=== PATIENT | female | born 1960 | race Caucasian/White ===

== ENCOUNTER 2016-06-17 09:11 | Emergency (ER) | payer MEDICARE, MEDICAID ==
[~2016-06-17] VITALS: Ht 157.5 cm; Wt 120.0 kg
[~2016-06-17 09:11] MED LIST: ALBU0.086 NEB; ALBU1AER INH; LEVO150T7 PO; LISI-363 PO; PRED50TA PO; RANI1TAB5 PO
[2016-06-17 09:15] VITALS: BP 139/93; PULSE 92; RESP 16; TEMP 98.1; O2SAT 96
[2016-06-17] MEDS ORDERED: ALBUAER3 INH (09:33)
[2016-06-17] MEDS ORDERED: LEVO175T2 PO (09:34)
[2016-06-17] MEDS ORDERED: ALBU0.08 NEB (09:34)
[2016-06-17] MEDS ORDERED: LISI30TA4 PO (09:34)
[2016-06-17] MEDS ORDERED: methylPREDNISolone SOD SUCC 125 MG/2 ML VIAL IVP ONE (09:45)
[2016-06-17] MEDS ORDERED: SODIUM CHLORIDE 0.9% FLUSH 5 ML FLUSH IVF PRN (09:45)
--- NOTE | 2016-06-17 09:46 | PD ---
HPI Chief Complaint: Respiratory Symptoms Time Seen by Provider: 09:36 Travel History International Travel<30 days: No Contact w/Intl Traveler<30days: No Traveled to known affect area: No History of Present Illness HPI This 56-year-old female is complaining of shortness of breath and sharp right- sided chest pain. He's had similar pain in the past associated with pneumonia and COPD. She stopped smoking 9 years ago but has significant COPD. She has been checked for alpha 1 antitrypsin was apparently negative. She has had a persistent cough. The pain she is having as a sharp right-sided chest pain that is only present when she takes a deep breath. She has a history of thyroidectomy for cancer of the thyroid [facility] Past Medical History Arthritis: Yes (SPINE AND KNEES) Asthma: Yes Blood Disorders: No Anxiety: Yes Depression: Yes Cancer: Yes (THYROID) Cardiovascular Problems: Yes High Cholesterol: Yes COPD: Yes Diabetes: No Diminished Hearing: No Endocrine: Yes Gastrointestinal Disorders: Yes GERD: Yes Glaucoma: No Genitourinary: No Headaches: Yes (HEADACHES IN THE AM) Hepatitis: No Hiatal Hernia: No Hypertension: Yes Immune Disorder: No Implanted Vascular Access Dvce: No Musculoskeletal: Yes Neurologic: Yes Psychiatric: Yes Reproductive: No Respiratory: Yes (COPD) Immunizations Current: Yes Radiation Therapy: Yes Sleep Apnea: Yes (DOES NOT WEAR CPAP) Thyroid Disease: Yes (THYROID CANCER) ?: Not Menopausal: Yes : 8 Para: 5 Miscarriage: 3 : 0 Ectopic : Yes Tubal Ligation: Yes (REVERSED) Past Surgical History Abdominal Surgery: Yes (CHOLECYSTECTOMY) Cardiac Surgery: No Cholecystectomy: Yes (1993) Ear Surgery: No Endocrine Surgery: Yes (THYROIDECTOMY WITH RADIATION) Eye Surgery: No Genitourinary Surgery: No Gynecologic Surgery: No Neurologic Surgery: No Oral Surgery: Yes Pacemaker: No Thoracic Surgery: No Tonsillectomy: Yes (1970--T&A) Other Surgery: Yes (THYROIDECTOMY) Social History Alcohol Use: Yes (OCCASIONAL) Tobacco Use: No (4 yrs. ago) Substance Use: No Allergies-Medications (Allergen,Severity, Reaction): Coded Allergies: Sulfa (Verified Allergy, Severe, "HIVES", 06/17/16) Reported Meds & Prescriptions Reported Meds & Active Scripts Active Reported Lisinopril 30 Mg Tab 30 Mg PO DAILY Levothyroxine (Levothyroxine Sodium) 175 Mcg Tab 175 Mcg PO DAILY Albuterol Neb (Albuterol Sulfate) 2.5 Mg/3 Ml Neb 2.5 Mg NEB Q4HR NEB PRN Proair Hfa 8.5 GM Inh (Albuterol Sulfate) 90 Mcg/Act Aer 2 Puff INH Q6H PRN 108 mcg/actuation Review of Systems General / Constitutional: Positive: Fever, No: Chills Eyes: No: Diploplia, Blurred Vision HENT: No: Headaches, Vertigo Cardiovascular: Positive: Chest Pain or Discomfort, Dyspnea on exertion, No: Palpitations, Irregular Rhythm Respiratory: Positive: Cough, Shortness of Breath Gastrointestinal: No: Diarrhea Genitourinary: No: Urgency, Frequency Musculoskeletal: No: Myalgias, Arthralgias Endocrine: No: Heat Intolerance, Cold Intolerance Hematologic/Lymphatic: No: Easy Bruising Physical Exam Narrative GENERAL: Well-developed female SKIN: Warm and dry. HEAD: Atraumatic. Normocephalic. EYES: Pupils equal and round. No scleral icterus. No injection or drainage. ENT: No nasal bleeding or discharge. Mucous membranes pink and moist. NECK: Trachea midline. No JVD. CARDIOVASCULAR: Regular rate and rhythm. No murmur appreciated. RESPIRATORY: No accessory muscle use. Diminished breath sounds bilaterally. Breath sounds equal bilaterally. GASTROINTESTINAL: Abdomen soft, non-tender, nondistended. Hepatic and splenic margins not palpable. MUSCULOSKELETAL: No obvious deformities. No clubbing. No cyanosis. No edema. NEUROLOGICAL: Awake and alert. No obvious cranial nerve deficits. Motor grossly within normal limits. Normal speech. PSYCHIATRIC: Appropriate mood and affect; insight and judgment normal. Data Data Last Documented VS Vital Signs Date Time Temp Pulse Resp B/P Pulse Ox O2 Delivery O2 Flow Rate FiO2 06/17/16 10:15 96 06/17/16 10:15 Room Air 06/17/16 09:34 18 06/17/16 09:15 98.1 92 139/93 Orders Complete Blood Count With Diff (06/17/16 09:42) Basic Metabolic Panel (Bmp) (06/17/16 09:42) Troponin I (06/17/16 09:42) Iv Access Insert/Monitor (06/17/16 09:42) Electrocardiogram (06/17/16 09:42) Ecg Monitoring (06/17/16 09:42) Oximetry (06/17/16 09:42) Oxygen Administration (06/17/16 09:42) Chest, Pa & Lat (06/17/16 09:42) Sodium Chloride 0.9% Flush (Ns Flush) (06/17/16 09:45) Methylprednisolone So Succ Inj (Solumedr (06/17/16 09:45) Albuterol-Ipratropium Neb (Duoneb Neb) (06/17/16 09:45) Labs Laboratory Tests Test 06/17/16 10:06 White Blood Count 8.4 TH/MM3 Red Blood Count 4.58 MIL/MM3 Hemoglobin 13.3 GM/DL Hematocrit 40.6 % Mean Corpuscular Volume 88.6 FL Mean Corpuscular Hemoglobin 29.1 PG Mean Corpuscular Hemoglobin 32.9 % Concent Red Cell Distribution Width 13.0 % Platelet Count 298 TH/MM3 Mean Platelet Volume 7.6 FL Neutrophils (%) (Auto) 62.7 % Lymphocytes (%) (Auto) 29.7 % Monocytes (%) (Auto) 5.1 % Eosinophils (%) (Auto) 1.7 % Basophils (%) (Auto) 0.8 % Neutrophils # (Auto) 5.3 TH/MM3 Lymphocytes # (Auto) 2.5 TH/MM3 Monocytes # (Auto) 0.4 TH/MM3 Eosinophils # (Auto) 0.1 TH/MM3 Basophils # (Auto) 0.1 TH/MM3 CBC Comment DIFF FINAL Differential Comment Sodium Level 141 MEQ/L Potassium Level 3.9 MEQ/L Chloride Level 101 MEQ/L Carbon Dioxide Level 34.9 MEQ/L Anion Gap 5 MEQ/L Blood Urea Nitrogen 10 MG/DL Creatinine 0.67 MG/DL Estimat Glomerular Filtration 91 ML/MIN Rate Random Glucose 89 MG/DL Calcium Level 8.0 MG/DL Troponin I LESS THAN 0.02 NG/ML MDM Medical Decision Making Medical Screen Exam Complete: Yes Emergency Medical Condition: Yes Medical Record Reviewed: Yes Differential Diagnosis Differential includes pneumonia, COPD exacerbation, pleurisy Narrative Course Chest x-ray shows enlarged cardiac silhouette which has been noted on previous x -rays. There is no infiltrate noted. White count is normal. Patient has been given an initial dose of Solu-Medrol and significant treatments with some improvement. Impression is COPD exacerbation Diagnosis Primary Impression: COPD exacerbation Scripts Amoxicillin 500 Mg Kre545 Mg PO TID 7 Days Ref 0 Prov:Dominic Flores MD 06/17/16 Methylprednisolone Dosepak (Medrol Dosepak)4 Mg Dspk4 Mg PO DIRECTED #1 DSPK Ref 0 Per Pharmacist direction Prov:Dominic Flores MD 06/17/16 Disposition: 01 DISCHARGE HOME Condition: Stable Dominic Flores MD Jun 17, 2016 09:46
[2016-06-17] MEDS: RESP: ALBUTEROL 2.5 MG/IPRATROPIUM 0.5 MG NEB (SCH) INH (09:49)
[2016-06-17 10:15] VITALS: O2SAT 96
[2016-06-17 10:20] LABS: AUTOMATED NEUTROPHIL # 5.3 TH/MM3 (1.8-7.7); BASOPHIL # 0.1 TH/MM3 (0-0.2); BASOPHIL % 0.8 % (0.0-2.0); EOSINOPHIL # 0.1 TH/MM3 (0-0.4); EOSINOPHIL % 1.7 % (0.0-4.0); HEMATOCRIT 40.6 % (35.0-46.0); HEMO FLAGS DIFF FINAL; LYMPH % 29.7 % (9.0-44.0); LYMPHOCYTE # 2.5 TH/MM3 (1.0-4.8); MEAN CELL VOLUME 88.6 FL (80.0-100.0); MEAN CORPUSCULAR HEMOGLOBIN 29.1 PG (27.0-34.0); MEAN CORPUSCULAR HGB CONC 32.9 % (32.0-36.0); MONO % 5.1 % (0.0-8.0); NEUT % 62.7 % (16.0-70.0); PLATELET COUNT 298 TH/MM3 (150-450); RED BLOOD COUNT 4.58 MIL/MM3 (4.00-5.30); WHITE BLOOD COUNT 8.4 TH/MM3 (4.0-11.0)
[2016-06-17 10:28] LABS: CHLORIDE 101 MEQ/L (98-107); POTASSIUM 3.9 MEQ/L (3.5-5.1); SODIUM (NA) 141 MEQ/L (136-145)
[2016-06-17 10:31] LABS: BLOOD UREA NITROGEN 10 MG/DL (7-18)
[2016-06-17 10:32] LABS: ANION GAP 5 MEQ/L (5-15); BICARBONATE 34.9 MEQ/L (21.0-32.0)
[2016-06-17 10:34] LABS: GLOMERULAR FILTRATION RATE 91 ML/MIN (>89)
--- NOTE | 2016-06-17 10:41 | RADHPO ---
EXAM DATE/TIME: 06/17/2016 10:22 [facility] COMPARISON: CHEST PA & LAT, April 07, 2014, 13:47. INDICATIONS : Short of breath, right side chest pain. MEDICAL HISTORY : Chronic obstructive pulmonary disease. SURGICAL HISTORY : None. ENCOUNTER: Initial ACUITY: 1 week PAIN SCORE: 7/10 LOCATION: Right chest FINDINGS: PA and lateral views of the chest demonstrate the lungs to be symmetrically aerated without evidence of mass, infiltrate or effusion. The cardiomediastinal contours again reveal mild left ventricular c ardiomegaly compensated.. Osseous structures are intact. CONCLUSION: No acute disease. No significant change has occurred. Prasanth Jacob MD on June 17, 2016 at 10:36 Board Certified Radiologist. This report was verified electronically.
[2016-06-17] MEDS ORDERED: MEDR4PAK PO ×2 (11:13→11:15)
[2016-06-17] MEDS ORDERED: AMOX500T PO ×2 (11:13→11:15)
[2016-06-17 11:34] VITALS: BP 135/74
--- NOTE | 2016-06-18 16:43 | EKG ---
Date Performed: 06/17/2016 Time Performed: 09:55:34 PTAGE: 56 years EKG: Sinus rhythm Inferior and anterior T wave changes are nonspecific Low QRS voltages in precordial leads Since prev ious tracing, no significant change noted Borderline ECG PREVIOUS TRACING : 04/10/2015 05.56 DOCTOR: Kristopher Husain Interpretating Date/Time 06/18/2016 16:43:17
== END 2016-06-17 11:35 | disposition home or self-care (01) ==
LOC: PHED 09:11
DX: J44.1 Chronic obstructive pulmonary disease with (acute) exacerbation (principal); E78.00 Pure hypercholesterolemia, unspecified; K21.9 Gastro-esophageal reflux disease without esophagitis; I10 Essential (primary) hypertension
CPT/HCPCS: 71020; 80048; 84484; 85025; 93005; 94640; 94664; 96374; 99285; J2930

== ENCOUNTER 2016-07-29 11:11 | Emergency (ER) | payer MEDICARE, MEDICAID ==
[~2016-07-29] VITALS: Ht 154.9 cm; Wt 100.0 kg
[~2016-07-29 11:11] MED LIST changes: +ALBU0.08 NEB; -ALBU0.086 NEB; -ALBU1AER INH; +ALBUAER3 INH; +AMOX500T PO; -LEVO150T7 PO; +LEVO175T2 PO; -LISI-363 PO; +LISI30TA4 PO; +MEDR4PAK PO; -PRED50TA PO; -RANI1TAB5 PO
[2016-07-29 11:15] VITALS: BP 134/83; PULSE 175; RESP 20; TEMP 98.7; O2SAT 97
[2016-07-29] MEDS ORDERED: SODIUM CHLORIDE 0.9% FLUSH 10 ML FLUSH IVF PRN (11:30)
[2016-07-29] MEDS ORDERED: ASPIRIN 81 MG CHEW TAB PO ONE (11:30)
[2016-07-29] MEDS ORDERED: ADENOSINE IV SOLN 3 MG/ML 2 ML VIAL IV PUSH ONE (11:30)
[2016-07-29] MEDS ORDERED: SODIUM CHLORID 0.9% 500 ML INJ 500 ML IV ONE (11:30)
[2016-07-29 11:32] VITALS: BP 142/84; PULSE 97; RESP 18; O2SAT 95
[2016-07-29 11:37] VITALS: BP_SYST 135; BP_SYST 142; BP_DIAS 83; BP_DIAS 84; PULSE 95; RESP 18; O2SAT 94
[2016-07-29 11:39] LABS: AUTOMATED NEUTROPHIL # 7.1 TH/MM3 (1.8-7.7); BASOPHIL # 0.1 TH/MM3 (0-0.2); BASOPHIL % 0.6 % (0.0-2.0); EOSINOPHIL # 0.2 TH/MM3 (0-0.4); EOSINOPHIL % 1.6 % (0.0-4.0); HEMATOCRIT 44.5 % (35.0-46.0); HEMO FLAGS DIFF FINAL; LYMPH % 26.8 % (9.0-44.0); LYMPHOCYTE # 2.9 TH/MM3 (1.0-4.8); MEAN CELL VOLUME 89.5 FL (80.0-100.0); MEAN CORPUSCULAR HEMOGLOBIN 29.1 PG (27.0-34.0); MEAN CORPUSCULAR HGB CONC 32.6 % (32.0-36.0); MONO % 5.3 % (0.0-8.0); NEUT % 65.7 % (16.0-70.0); PLATELET COUNT 336 TH/MM3 (150-450); RED BLOOD COUNT 4.97 MIL/MM3 (4.00-5.30); RED CELL DISTRIBUTION WIDTH 12.9 % (11.6-17.2); WHITE BLOOD COUNT 10.9 TH/MM3 (4.0-11.0)
[2016-07-29 11:40] VITALS: RESP 16; O2SAT 92
[2016-07-29 11:46] VITALS: RESP 16; O2SAT 91
--- NOTE | 2016-07-29 11:52 | PD ---
HPI Chief Complaint: Chest Pain Time Seen by Provider: 11:14 Travel History International Travel<30 days: No Contact w/Intl Traveler<30days: No Traveled to known affect area: No History of Present Illness HPI The patient is a 56-year-old female who presents emergency department for chest pain. The patient states he developed chest pain, sudden onset, approximately 15 minutes prior to arrival while shopping. The chest pain was substernal, pressure, heaviness, and assisted with mild shortness of breath. The patient also complained of diaphoresis without any nausea or vomiting. The patient denies any known history of coronary artery disease, however, does have a history of hypertension. The patient has a remote history of tobacco use, quit greater than 5 years ago. The patient does have underlying history of COPD secondary to previous tobacco use. The patient denies any history of hyperlipidemia or diabetes. The patient denies any recent prolonged travel, hospitalizations, surgeries, or previous history of pulmonary embolism/DVT. Patient denies any history of arrhythmias including SVT or atrial fibrillation. PFSH Past Medical History Hx Anticoagulant Therapy: No Arthritis: Yes (SPINE AND KNEES) Asthma: Yes Blood Disorders: No Anxiety: Yes Depression: Yes Cancer: Yes (THYROID) Cardiovascular Problems: Yes High Cholesterol: Yes COPD: Yes Diabetes: No Diminished Hearing: No Endocrine: Yes Gastrointestinal Disorders: Yes GERD: Yes Glaucoma: No Genitourinary: No Headaches: Yes (HEADACHES IN THE AM) Hepatitis: No Hiatal Hernia: No Hypertension: Yes Immune Disorder: No Implanted Vascular Access Dvce: No Musculoskeletal: Yes Neurologic: Yes Psychiatric: Yes Reproductive: No Respiratory: Yes (COPD) Immunizations Current: Yes Radiation Therapy: Yes Sleep Apnea: Yes (DOES NOT WEAR CPAP) Thyroid Disease: Yes (THYROID CANCER) Tetanus Vaccination: < 5 Years ?: Not Menopausal: Yes : 8 Para: 5 Miscarriage: 3 : 0 Ectopic : Yes Tubal Ligation: Yes (REVERSED) Past Surgical History Abdominal Surgery: Yes (CHOLECYSTECTOMY) Cardiac Surgery: No Cholecystectomy: Yes (1993) Ear Surgery: No Endocrine Surgery: Yes (THYROIDECTOMY WITH RADIATION) Eye Surgery: No Genitourinary Surgery: No Gynecologic Surgery: No Neurologic Surgery: No Oral Surgery: Yes Pacemaker: No Thoracic Surgery: No Tonsillectomy: Yes (1970--T&A) Other Surgery: Yes (THYROIDECTOMY) Social History Alcohol Use: Yes (OCCASIONAL) Tobacco Use: No (QUIT 2007) Substance Use: No Allergies-Medications (Allergen,Severity, Reaction): Coded Allergies: Sulfa (Verified Allergy, Severe, "HIVES", 07/29/16) Reported Meds & Prescriptions Reported Meds & Active Scripts Active Reported Lisinopril 30 Mg Tab 30 Mg PO DAILY Levothyroxine (Levothyroxine Sodium) 175 Mcg Tab 175 Mcg PO DAILY Albuterol Neb (Albuterol Sulfate) 2.5 Mg/3 Ml Neb 2.5 Mg NEB Q4HR NEB PRN Proair Hfa 8.5 GM Inh (Albuterol Sulfate) 90 Mcg/Act Aer 2 Puff INH Q6H PRN 108 mcg/actuation Review of Systems Except as stated in HPI: all other systems reviewed are Neg General / Constitutional: No: Fever HENT: No: Lightheadedness Cardiovascular: Positive: Chest Pain or Discomfort, Diaphoresis Respiratory: Positive: Shortness of Breath Gastrointestinal: No: Nausea, Vomiting Neurologic: No: Dizziness Physical Exam Narrative GENERAL: Awake, alert, pleasant 56 year-old female who appears her stated age and is in no acute respiratory distress. SKIN: Focused skin assessment warm/dry. HEAD: Atraumatic. Normocephalic. EYES: Pupils equal and round. No scleral icterus. No injection or drainage. ENT: No nasal bleeding or discharge. Mucous membranes pink and moist. NECK: Trachea midline. No JVD. CARDIOVASCULAR: Regular, tachycardic with a heart rate of approximately 170. RESPIRATORY: No accessory muscle use. Clear to auscultation. Breath sounds equal bilaterally. GASTROINTESTINAL: Abdomen soft, non-tender, nondistended. MUSCULOSKELETAL: No obvious deformities. No clubbing. No cyanosis. No edema. NEUROLOGICAL: Awake and alert. No obvious cranial nerve deficits. Motor grossly within normal limits. Normal speech. PSYCHIATRIC: Appropriate mood and affect; insight and judgment normal. Data Data Last Documented VS Vital Signs Date Time Temp Pulse Resp B/P Pulse Ox O2 Delivery O2 Flow Rate FiO2 07/29/16 12:37 88 16 148/87 97 Nasal Cannula 1 07/29/16 11:15 98.7 Orders Electrocardiogram (07/29/16 11:18) Ckmb (Isoenzyme) Profile (07/29/16 11:18) Complete Blood Count With Diff (07/29/16 11:18) Comprehensive Metabolic Panel (07/29/16 11:18) D-Dimer (07/29/16 11:18) Magnesium (Mg) (07/29/16 11:18) Prothrombin Time / Inr (Pt) (07/29/16 11:18) Act Partial Throm Time (Ptt) (07/29/16 11:18) Troponin I (07/29/16 11:18) Chest, Single Ap (07/29/16 11:18) Ecg Monitoring (07/29/16 11:18) Bilateral Bp Monitoring (07/29/16 11:18) Iv Access Insert/Monitor (07/29/16 11:18) Oximetry (07/29/16 11:18) Oxygen Administration (07/29/16 11:18) Aspirin Chew (Aspirin Chew) (07/29/16 11:30) Sodium Chloride 0.9% Flush (Ns Flush) (07/29/16 11:30) Sodium Chlorid 0.9% 500 Ml Inj (Ns 500 M (07/29/16 11:30) Adenosine Inj (Adenocard Inj) (07/29/16 11:30) Free Thyroxine (T4) (07/29/16 11:28) Thyroid Stimulating Hormone (07/29/16 11:28) CKMB (07/29/16 11:25) CKMB% (07/29/16 11:25) Free Thyroxine (T4) (07/29/16 13:09) Thyroid Stimulating Hormone (07/29/16 13:09) Labs Laboratory Tests Test 07/29/16 11:25 White Blood Count 10.9 TH/MM3 Red Blood Count 4.97 MIL/MM3 Hemoglobin 14.5 GM/DL Hematocrit 44.5 % Mean Corpuscular Volume 89.5 FL Mean Corpuscular Hemoglobin 29.1 PG Mean Corpuscular Hemoglobin 32.6 % Concent Red Cell Distribution Width 12.9 % Platelet Count 336 TH/MM3 Mean Platelet Volume 8.0 FL Neutrophils (%) (Auto) 65.7 % Lymphocytes (%) (Auto) 26.8 % Monocytes (%) (Auto) 5.3 % Eosinophils (%) (Auto) 1.6 % Basophils (%) (Auto) 0.6 % Neutrophils # (Auto) 7.1 TH/MM3 Lymphocytes # (Auto) 2.9 TH/MM3 Monocytes # (Auto) 0.6 TH/MM3 Eosinophils # (Auto) 0.2 TH/MM3 Basophils # (Auto) 0.1 TH/MM3 CBC Comment DIFF FINAL Differential Comment Prothrombin Time 10.4 SEC Prothromb Time International 0.9 RATIO Ratio Activated Partial 27.0 SEC Thromboplast Time D-Dimer Quantitative (PE/DVT) 0.43 MG/L FEU Sodium Level 140 MEQ/L Potassium Level 3.9 MEQ/L Chloride Level 100 MEQ/L Carbon Dioxide Level 32.4 MEQ/L Anion Gap 8 MEQ/L Blood Urea Nitrogen 12 MG/DL Creatinine 0.76 MG/DL Estimat Glomerular Filtration 79 ML/MIN Rate Random Glucose 95 MG/DL Calcium Level 8.8 MG/DL Magnesium Level 2.2 MG/DL Total Bilirubin 0.4 MG/DL Aspartate Amino Transf 24 U/L (AST/SGOT) Alanine Aminotransferase 36 U/L (ALT/SGPT) Alkaline Phosphatase 64 U/L Total Creatine Kinase 107 U/L Creatine Kinase MB 0.7 NG/ML Troponin I LESS THAN 0.02 NG/ML Total Protein 8.1 GM/DL Albumin 3.8 GM/DL Thyroid Stimulating Hormone 19.300 uIU/ML [address] [place] [address] Medical Decision Making Medical Screen Exam Complete: Yes Emergency Medical Condition: Yes Medical Record Reviewed: Yes Interpretation(s) EKG #1 reveals supraventricular tachycardia with a heart rate of 176. Repeat EKG #2 reveals sinus tachycardia with a heart rate of 114. Nonspecific ST changes. Last Impressions Chest X-Ray 07/29/16 1118 Signed Impressions: Service Date/Time: Friday, July 29, 2016 11:29 - CONCLUSION: 1. Cardiomegaly. The lungs are clear. Stable compared to previous dated 06/17/16. Khoa Aguilar MD Laboratory Tests Test 07/29/16 11:25 White Blood Count 10.9 TH/MM3 Red Blood Count 4.97 MIL/MM3 Hemoglobin 14.5 GM/DL Hematocrit 44.5 % Mean Corpuscular Volume 89.5 FL Mean Corpuscular Hemoglobin 29.1 PG Mean Corpuscular Hemoglobin 32.6 % Concent Red Cell Distribution Width 12.9 % Platelet Count 336 TH/MM3 Mean Platelet Volume 8.0 FL Neutrophils (%) (Auto) 65.7 % Lymphocytes (%) (Auto) 26.8 % Monocytes (%) (Auto) 5.3 % Eosinophils (%) (Auto) 1.6 % Basophils (%) (Auto) 0.6 % Neutrophils # (Auto) 7.1 TH/MM3 Lymphocytes # (Auto) 2.9 TH/MM3 Monocytes # (Auto) 0.6 TH/MM3 Eosinophils # (Auto) 0.2 TH/MM3 Basophils # (Auto) 0.1 TH/MM3 CBC Comment DIFF FINAL Differential Comment Prothrombin Time 10.4 SEC Prothromb Time International 0.9 RATIO Ratio Activated Partial 27.0 SEC Thromboplast Time D-Dimer Quantitative (PE/DVT) 0.43 MG/L FEU Sodium Level 140 MEQ/L Potassium Level 3.9 MEQ/L Chloride Level 100 MEQ/L Carbon Dioxide Level 32.4 MEQ/L Anion Gap 8 MEQ/L Blood Urea Nitrogen 12 MG/DL Creatinine 0.76 MG/DL Estimat Glomerular Filtration 79 ML/MIN Rate Random Glucose 95 MG/DL Calcium Level 8.8 MG/DL Magnesium Level 2.2 MG/DL Total Bilirubin 0.4 MG/DL Aspartate Amino Transf 24 U/L (AST/SGOT) Alanine Aminotransferase 36 U/L (ALT/SGPT) Alkaline Phosphatase 64 U/L Total Creatine Kinase 107 U/L Creatine Kinase MB 0.7 NG/ML Troponin I LESS THAN 0.02 NG/ML Total Protein 8.1 GM/DL Albumin 3.8 GM/DL Thyroid Stimulating Hormone 19.300 uIU/ML 3rd Gen Differential Diagnosis Differential diagnosis includes supraventricular tachycardia, atrial flutter, atrial fibrillation, hyperhyroidism, pulmonary embolism, electrolyte abnormality , acute coronary syndrome. Narrative Course IV was established, labs are drawn and sent, and the patient was placed on cardiac telemetry monitoring and continuous pulse oximetry monitoring. EKG was ordered and interpreted. The patient was placed on monitoring, noted to be in SVT, was administered adenosine 6 mg with 1 L of IV fluids. The patient's heart rate went from the 170s down to the high 90s, appeared to be normal sinus rhythm. The patient denies any known history of SVT or atrial fibrillation. The patient's chest pain resolved after her heart rate came down into the 90s, after the administration of adenosine. TSH, free T4, d-dimer was sent to lab. The patient was monitored in the emergency department. D-dimer 0.43, therefore , no indication for CT pulmonary angiogram. Electrolytes unremarkable. Troponin is negative. TSH is elevated and 19.3, free T4 was ordered. It does not appear that the patient's thyroid medication is causing her symptoms as her TSH is significantly elevated. The patient states they have increased her doses of thyroid medication in the past, however, increased her blood pressure. The patient is stable for outpatient follow-up with her primary physician. She is advised to return if symptoms worsen or progress. Diagnosis Primary Impression: SVT (supraventricular tachycardia) Patient Instructions: General Instructions Additional Instructions: Please provide the patient a copy of her lab results and x-ray results at discharge. Follow-up with your primary physician. Return if symptoms worsen or progress. Med/Other Pt SpecificInfo: No Change to Meds Disposition: 01 DISCHARGE HOME Condition: Stable Júnior Ramírez MD Jul 29, 2016 11:52 Júnior Ramírez MD Jul 29, 2016 11:52
[2016-07-29 11:59] LABS: CHLORIDE 100 MEQ/L (98-107); POTASSIUM 3.9 MEQ/L (3.5-5.1); SODIUM (NA) 140 MEQ/L (136-145)
[2016-07-29 12:03] LABS: ANION GAP 8 MEQ/L (5-15); BICARBONATE 32.4 MEQ/L (21.0-32.0); BLOOD UREA NITROGEN 12 MG/DL (7-18); MAGNESIUM 2.2 MG/DL (1.5-2.5)
--- NOTE | 2016-07-29 12:03 | RADHPO ---
EXAM DATE/TIME: 07/29/2016 11:29 [facility] COMPARISON: CHEST PA & LAT, June 17, 2016, 10:22. INDICATIONS : Chest pain & rapid heart rate. MEDICAL HISTORY : Chronic obstructive pulmonary disease. Hypertension Hypercholesterolemia. Asthma. Thyroid CA. SURGICAL HISTORY : Tonsillectomy. Tubal ligation. Cholecystectomy. Thyroidectomy. ENCOUNTER: Initial ACUITY: 1 day PAIN SCORE: 6/10 LOCATION: chest FINDINGS: The heart is enlarged. The lungs are clear. Visualized bony structures are grossly intact. CONCLUSION: 1. Cardiomegaly. The lungs are clear. Stable compared to previous dated 06/17/16. Khoa Aguilar MD on July 29, 2016 at 12:01 Board Certified Radiologist. This report was verified electronically.
[2016-07-29 12:06] LABS: ALT (GPT) 36 U/L (10-53); AST (GOT) 24 U/L (15-37); GLOMERULAR FILTRATION RATE 79 ML/MIN (>89)
[2016-07-29 12:07] LABS: TOTAL BILIRUBIN ADULT 0.4 MG/DL (0.2-1.0)
[2016-07-29 12:09] LABS: ALKALINE PHOSPHATASE 64 U/L (45-117); CREATINE KINASE 107 U/L (26-192)
[2016-07-29 12:21] LABS: CKMB 0.7 NG/ML (0.5-3.6)
[2016-07-29 12:22] LABS: INTERNATIONAL NORMALIZED RATIO 0.9 RATIO; PROTHROMBIN TIME - PATIENT 10.4 SEC (9.8-11.6)
[2016-07-29 12:37] VITALS: BP 148/87; PULSE 88; RESP 16; O2SAT 97
[2016-07-29 14:46] LABS: FREE T4 1.08 NG/DL (0.76-1.46)
--- NOTE | 2016-07-30 11:01 | EKG ---
Date Performed: 07/29/2016 Time Performed: 11:15:10 PTAGE: 56 years EKG: Supraventricular tachycardia, likely sinus Extensive ST-T changes suggest myocardial injury /ischemia Baseline artifact Abnormal ECG PREVIOUS TRACING : 06/17/2016 09.55 DOCTOR: Jelena Yates Interpretating Date/Time 07/30/2016 10:58:51
--- NOTE | 2016-07-30 11:01 | EKG ---
Date Performed: 07/29/2016 Time Performed: 11:21:28 PTAGE: 56 years EKG: Sinus tachycardia rSr'(V1) - probable normal variant Possible anterior infarct - age undete rmined Inferior/lateral ST-T changes are nonspecific Compared to previous tracing, the patient's hear t rate has improved. Abnormal ECG PREVIOUS TRACING : 07/29/2016 11.15 DOCTOR: Jelena Yates Interpretating Date/Time 07/30/2016 10:59:19
== END 2016-07-29 13:26 | disposition home or self-care (01) ==
LOC: PHED 11:11
DX: I47.1 Supraventricular tachycardia (principal); R06.02 Shortness of breath; R07.9 Chest pain, unspecified; M19.90 Unspecified osteoarthritis, unspecified site; J45.909 Unspecified asthma, uncomplicated; J44.9 Chronic obstructive pulmonary disease, unspecified; K21.9 Gastro-esophageal reflux disease without esophagitis; I10 Essential (primary) hypertension; Z87.891 Personal history of nicotine dependence
CPT/HCPCS: 71010; 80053; 82550; 82552; 83735; 84439; 84443; 84484; 85025; 85379; 85610; 85730; 93005; 96361; 96374; 99285; J0153; J7040

== ENCOUNTER 2016-09-22 16:02 | Emergency (ER) | payer MEDICARE, MEDICAID ==
[~2016-09-22] VITALS: Ht 157.5 cm; Wt 110.0 kg
[~2016-09-22 16:02] MED LIST changes: -AMOX500T PO; -MEDR4PAK PO
[2016-09-22 16:07] VITALS: BP 164/99; PULSE 108; RESP 20; TEMP 97.7; O2SAT 92
[2016-09-22] MEDS ORDERED: predniSONE 20 MG TAB PO ONE (16:30)
[2016-09-22] MEDS ORDERED: SODIUM CHLORIDE 0.9% FLUSH 10 ML FLUSH IVF PRN (16:30)
--- NOTE | 2016-09-22 16:30 | PD ---
HPI Chief Complaint: Respiratory Symptoms Time Seen by Provider: 16:11 Travel History International Travel<30 days: No Contact w/Intl Traveler<30days: No Traveled to known affect area: No History of Present Illness HPI The patient was seen and examined in the presence of the nurse. This patient complains of some shortness of breath. She has COPD. She uses oxygen and nebulizers as needed. She no longer smokes. She also complains of some epigastric pain. Duration one day. Severity is moderate. No vomiting or diarrhea or lower quadrant pains. She's had a cholecystectomy. Symptoms have no alleviating factors. PFSH Past Medical History Hx Anticoagulant Therapy: No Arthritis: Yes (SPINE AND KNEES) Asthma: Yes Blood Disorders: No Anxiety: Yes Depression: Yes Cancer: Yes (THYROID) Cardiovascular Problems: Yes (HTN) High Cholesterol: Yes COPD: Yes Diabetes: No Diminished Hearing: No Endocrine: Yes Gastrointestinal Disorders: Yes GERD: Yes Glaucoma: No Genitourinary: No Headaches: Yes (HEADACHES IN THE AM) Hepatitis: No Hiatal Hernia: No Hypertension: Yes Immune Disorder: No Implanted Vascular Access Dvce: No Musculoskeletal: Yes Neurologic: Yes Psychiatric: Yes Reproductive: No Respiratory: Yes (COPD/EMPHYSEMA) Immunizations Current: Yes Radiation Therapy: Yes Sleep Apnea: Yes (DOES NOT WEAR CPAP) Thyroid Disease: Yes (THYROID CANCER) ?: Not Menopausal: Yes : 8 Para: 5 Miscarriage: 3 : 0 Ectopic : Yes Tubal Ligation: Yes (REVERSED) Past Surgical History Abdominal Surgery: Yes (CHOLECYSTECTOMY) Cardiac Surgery: No Cholecystectomy: Yes (1993) Ear Surgery: No Endocrine Surgery: Yes (THYROIDECTOMY WITH RADIATION) Eye Surgery: No Genitourinary Surgery: No Gynecologic Surgery: No Neurologic Surgery: No Oral Surgery: Yes Pacemaker: No Thoracic Surgery: No Tonsillectomy: Yes (1970--T&A) Other Surgery: Yes (THYROIDECTOMY) Social History Alcohol Use: Yes (OCCASIONAL) Tobacco Use: No (QUIT 2007) Substance Use: No Allergies-Medications (Allergen,Severity, Reaction): Coded Allergies: Sulfa (Verified Allergy, Severe, "HIVES", 09/22/16) Reported Meds & Prescriptions Reported Meds & Active Scripts Active Prednisone 20 Mg Tab 20 Mg PO DAILY Reported Lisinopril 30 Mg Tab 30 Mg PO DAILY Levothyroxine (Levothyroxine Sodium) 175 Mcg Tab 175 Mcg PO DAILY Albuterol Neb (Albuterol Sulfate) 2.5 Mg/3 Ml Neb 2.5 Mg NEB Q4HR NEB PRN Proair Hfa 8.5 GM Inh (Albuterol Sulfate) 90 Mcg/Act Aer 2 Puff INH Q6H PRN 108 mcg/actuation Review of Systems General / Constitutional: No: Fever Eyes: No: Visual changes HENT: No: Headaches Cardiovascular: No: Chest Pain or Discomfort Respiratory: Positive: Cough, Shortness of Breath Gastrointestinal: Positive: Abdominal Pain Genitourinary: No: Dysuria Musculoskeletal: No: Pain Skin: No Rash Neurologic: No: Weakness Psychiatric: No: Depression Endocrine: No: Polydipsia Hematologic/Lymphatic: No: Easy Bruising Physical Exam Narrative GENERAL: Well-nourished, well-developed patient in no apparent distress. SKIN: Focused skin assessment reveals no rash and nodules. Skin is Warm and dry. HEAD: Atraumatic. Normocephalic. EYES: Pupils equal and round. No scleral icterus. No injection or drainage. ENT: No nasal bleeding or discharge. Mucous membranes pink and moist. NECK: Trachea midline. No JVD. CARDIOVASCULAR: Regular rate and rhythm. No murmur appreciated. RESPIRATORY: No accessory muscle use. Scattered rhonchi and a rare expiratory wheeze . Breath sounds equal bilaterally. GASTROINTESTINAL: Abdomen soft, minor epigastric tenderness without rebound or guarding, nondistended. Hepatic and splenic margins not palpable. MUSCULOSKELETAL: No obvious deformities. No clubbing. No cyanosis. No edema. NEUROLOGICAL: Awake and alert. No obvious cranial nerve deficits. Motor grossly within normal limits. Normal speech. PSYCHIATRIC: Appropriate mood and affect; insight and judgment normal. Data Data Last Documented VS Vital Signs Date Time Temp Pulse Resp B/P Pulse Ox O2 Delivery O2 Flow Rate FiO2 09/22/16 16:42 96 18 152/98 99 Nasal Cannula 2 09/22/16 16:07 97.7 Orders Complete Blood Count With Diff (09/22/16 16:22) Comprehensive Metabolic Panel (09/22/16 16:22) Iv Access Insert/Monitor (09/22/16 16:22) Ecg Monitoring (09/22/16 16:22) Oximetry (09/22/16 16:22) Oxygen Administration (09/22/16 16:22) Chest, Single Ap (09/22/16 16:22) Sodium Chloride 0.9% Flush (Ns Flush) (09/22/16 16:30) Albuterol-Ipratropium Neb (Duoneb Neb) (09/22/16 16:30) Lipase (09/22/16 16:22) Prednisone (Deltasone) (09/22/16 16:30) Troponin I (09/22/16 16:22) Ckmb (Isoenzyme) Profile (09/22/16 16:22) CKMB (09/22/16 16:25) CKMB% (09/22/16 16:25) Labs Laboratory Tests Test 09/22/16 16:25 White Blood Count 10.3 TH/MM3 Red Blood Count 4.55 MIL/MM3 Hemoglobin 13.5 GM/DL Hematocrit 39.9 % Mean Corpuscular Volume 87.7 FL Mean Corpuscular Hemoglobin 29.7 PG Mean Corpuscular Hemoglobin 33.9 % Concent Red Cell Distribution Width 12.4 % Platelet Count 327 TH/MM3 Mean Platelet Volume 7.8 FL Neutrophils (%) (Auto) 65.6 % Lymphocytes (%) (Auto) 26.6 % Monocytes (%) (Auto) 5.5 % Eosinophils (%) (Auto) 1.8 % Basophils (%) (Auto) 0.5 % Neutrophils # (Auto) 6.7 TH/MM3 Lymphocytes # (Auto) 2.7 TH/MM3 Monocytes # (Auto) 0.6 TH/MM3 Eosinophils # (Auto) 0.2 TH/MM3 Basophils # (Auto) 0.1 TH/MM3 CBC Comment DIFF FINAL Differential Comment Sodium Level 142 MEQ/L Potassium Level 3.5 MEQ/L Chloride Level 100 MEQ/L Carbon Dioxide Level 33.9 MEQ/L Anion Gap 8 MEQ/L Blood Urea Nitrogen 10 MG/DL Creatinine 0.56 MG/DL Estimat Glomerular Filtration 112 ML/MIN Rate Random Glucose 93 MG/DL Calcium Level 8.3 MG/DL Total Bilirubin 0.3 MG/DL Aspartate Amino Transf 17 U/L (AST/SGOT) Alanine Aminotransferase 34 U/L (ALT/SGPT) Alkaline Phosphatase 59 U/L Total Creatine Kinase 109 U/L Creatine Kinase MB 1.0 NG/ML Troponin I LESS THAN 0.02 NG/ML Total Protein 7.4 GM/DL Albumin 3.4 GM/DL Lipase 175 U/L MDM Medical Decision Making Medical Screen Exam Complete: Yes Emergency Medical Condition: Yes Medical Record Reviewed: Yes Differential Diagnosis Differential diagnosis includes COPD, asthma, pneumonia, bronchitis, Narrative Course I have reviewed the patient's electronic medical record. She's been her multiple times for COPD in the past IV placed CBC is normal Metabolic profile is normal LFTs are normal Lipase is normal I reviewed her chest x-ray shows no acute consolidation or pneumothorax I gave her series of 3 nebulizer treatments I gave her 80 mg prednisone Reviewed her EKG which shows sinus rhythm but no ST elevation Extended cardiac monitoring reveals sinus rhythm without ectopy Workup here is negative. Patient feels improved after nebulizers Wrote 5 days of prednisone She has both oxygen and nebulizers to use if needed Diagnosis Primary Impression: COPD exacerbation Additional Impression: Epigastric pain Additional Instructions: The patient was advised to follow up with their physician and return if they worsen. Med/Other Pt SpecificInfo: Prescription(s) given Scripts Prednisone 20 Mg Tab20 Mg PO DAILY #5 TAB Ref 0 Prov:Martin Aguilera MD 09/22/16 Disposition: 01 DISCHARGE HOME Condition: Stable Martin Aguilera MD September 22, 2016 16:30
[2016-09-22 16:36] VITALS: RESP 18; O2SAT 95
[2016-09-22 16:42] VITALS: BP 152/98; PULSE 96; RESP 18; O2SAT 99
[2016-09-22] MEDS: RESP: ALBUTEROL 2.5 MG/IPRATROPIUM 0.5 MG NEB (SCH) INH (16:45)
--- NOTE | 2016-09-22 17:00 | RADHPO ---
EXAM DATE/TIME: 09/22/2016 16:41 [facility] COMPARISON: CHEST SINGLE AP, July 29, 2016, 11:29. INDICATIONS : Short of breath, mid chest pains MEDICAL HISTORY : Chronic obstructive pulmonary disease. Emphysema. SURGICAL HISTORY : None. ENCOUNTER: Initial ACUITY: 4 - 6 days PAIN SCORE: 7/10 LOCATION: Bilateral chest FINDINGS: The heart is enlarged. The pulmonary vascular pattern is normal. The lungs are clear. CONCLUSION: 1. Cardiomegaly. 2. No acute focal pulmonary infiltrate or pulmonary vascular congestion. Edenilson Penaloza MD on September 22, 2016 at 16:57 Board Certified Radiologist. This report was verified electronically.
[2016-09-22 17:15] LABS: AUTOMATED NEUTROPHIL # 6.7 TH/MM3 (1.8-7.7); BASOPHIL # 0.1 TH/MM3 (0-0.2); BASOPHIL % 0.5 % (0.0-2.0); EOSINOPHIL # 0.2 TH/MM3 (0-0.4); EOSINOPHIL % 1.8 % (0.0-4.0); HEMATOCRIT 39.9 % (35.0-46.0); HEMO FLAGS DIFF FINAL; LYMPH % 26.6 % (9.0-44.0); LYMPHOCYTE # 2.7 TH/MM3 (1.0-4.8); MEAN CELL VOLUME 87.7 FL (80.0-100.0); MEAN CORPUSCULAR HEMOGLOBIN 29.7 PG (27.0-34.0); MEAN CORPUSCULAR HGB CONC 33.9 % (32.0-36.0); MONO % 5.5 % (0.0-8.0); NEUT % 65.6 % (16.0-70.0); PLATELET COUNT 327 TH/MM3 (150-450); RED BLOOD COUNT 4.55 MIL/MM3 (4.00-5.30); RED CELL DISTRIBUTION WIDTH 12.4 % (11.6-17.2); WHITE BLOOD COUNT 10.3 TH/MM3 (4.0-11.0)
[2016-09-22 17:24] LABS: CHLORIDE 100 MEQ/L (98-107); POTASSIUM 3.5 MEQ/L (3.5-5.1); SODIUM (NA) 142 MEQ/L (136-145)
[2016-09-22 17:28] LABS: ANION GAP 8 MEQ/L (5-15); BICARBONATE 33.9 MEQ/L (21.0-32.0); BLOOD UREA NITROGEN 10 MG/DL (7-18)
[2016-09-22 17:31] LABS: ALT (GPT) 34 U/L (10-53); AST (GOT) 17 U/L (15-37); GLOMERULAR FILTRATION RATE 112 ML/MIN (>89)
[2016-09-22 17:33] LABS: TOTAL BILIRUBIN ADULT 0.3 MG/DL (0.2-1.0)
[2016-09-22 17:34] LABS: ALKALINE PHOSPHATASE 59 U/L (45-117); CREATINE KINASE 109 U/L (26-192)
[2016-09-22] MEDS ORDERED: PRED20 PO (18:20)
[2016-09-22 18:43] VITALS: BP 134/85
--- NOTE | 2016-09-22 21:26 | EKG ---
Date Performed: 09/22/2016 Time Performed: 16:08:34 PTAGE: 56 years EKG: Sinus rhythm Possible inferior infarct - age undetermined Anterior T wave changes are nonspecific Low QRS voltage s in precordial leads RSR prime in V1 Abnormal ECG COMPARED TO PRIOR ELECTROCARDIOGRAM, Borderline cr iteria for inferior myocardial infarction is present. PREVIOUS TRACING : 07/29/2016 11.21 DOCTOR: Brody Kwan Interpretating Date/Time 09/22/2016 21:25:05
== END 2016-09-22 18:53 | disposition home or self-care (01) ==
LOC: PHED 16:02
DX: J44.1 Chronic obstructive pulmonary disease with (acute) exacerbation (principal); I10 Essential (primary) hypertension; Z85.850 Personal history of malignant neoplasm of thyroid; E78.00 Pure hypercholesterolemia, unspecified; R10.13 Epigastric pain
CPT/HCPCS: 71010; 80053; 82550; 82552; 83690; 84484; 85025; 93005; 94640; 94664; 99285; J7512

== ENCOUNTER 2016-10-24 08:27 | Emergency (ER) | payer MEDICARE, MEDICAID ==
[~2016-10-24] VITALS: Ht 154.9 cm; Wt 109.0 kg
[~2016-10-24 08:27] MED LIST changes: +PRED20 PO
--- NOTE | 2016-10-24 08:39 | PD ---
HPI Chief Complaint: Respiratory Distress Time Seen by Provider: 08:34 Travel History International Travel<30 days: No Contact w/Intl Traveler<30days: No History of Present Illness HPI This is a 56-year-old female who presents to the emergency department with a history of COPD with increasing shortness of breath and difficulty breathing over the past 2 days. She feels like she is having trouble getting her air out , constant, severe, worse with exertion. She denies any associated fevers, chills or productive cough. Denies any leg swelling. She has been hospitalized for COPD in the past. She's never been on a ventilator for her COPD. She's been using nebulizers at home but hasn't been helping. PFSH Past Medical History Hx Anticoagulant Therapy: No Arthritis: Yes (SPINE AND KNEES) Asthma: Yes Blood Disorders: No Anxiety: Yes Depression: Yes Cancer: Yes (THYROID) Cardiovascular Problems: Yes (HTN) High Cholesterol: Yes COPD: Yes Diabetes: No Diminished Hearing: No Endocrine: Yes Gastrointestinal Disorders: Yes GERD: Yes Glaucoma: No Genitourinary: No Headaches: Yes (HEADACHES IN THE AM) Hepatitis: No Hiatal Hernia: No Hypertension: Yes Immune Disorder: No Implanted Vascular Access Dvce: No Musculoskeletal: Yes Neurologic: Yes Psychiatric: Yes Reproductive: No Respiratory: Yes (COPD/EMPHYSEMA) Immunizations Current: Yes Radiation Therapy: Yes Sleep Apnea: Yes (DOES NOT WEAR CPAP) Thyroid Disease: Yes (THYROID CANCER) Menopausal: Yes : 8 Para: 5 Miscarriage: 3 : 0 Ectopic : Yes Tubal Ligation: Yes (REVERSED) Past Surgical History Abdominal Surgery: Yes (CHOLECYSTECTOMY) Cardiac Surgery: No Cholecystectomy: Yes (1993) Ear Surgery: No Endocrine Surgery: Yes (THYROIDECTOMY WITH RADIATION) Eye Surgery: No Genitourinary Surgery: No Gynecologic Surgery: No Neurologic Surgery: No Oral Surgery: Yes Pacemaker: No Thoracic Surgery: No Tonsillectomy: Yes (1970--T&A) Other Surgery: Yes (THYROIDECTOMY) Social History Alcohol Use: Yes (OCCASIONAL) Tobacco Use: No (QUIT 2007) Substance Use: No Allergies-Medications (Allergen,Severity, Reaction): Coded Allergies: Sulfa (Verified Allergy, Severe, "HIVES", 10/24/16) Reported Meds & Prescriptions Reported Meds & Active Scripts Active Reported Lisinopril 30 Mg Tab 30 Mg PO DAILY Levothyroxine (Levothyroxine Sodium) 175 Mcg Tab 175 Mcg PO DAILY Albuterol Neb (Albuterol Sulfate) 2.5 Mg/3 Ml Neb 2.5 Mg NEB Q4HR NEB PRN Proair Hfa 8.5 GM Inh (Albuterol Sulfate) 90 Mcg/Act Aer 2 Puff INH Q6H PRN 108 mcg/actuation Review of Systems Except as stated in HPI: all other systems reviewed are Neg Physical Exam Narrative GENERAL: Uncomfortable appearing SKIN: Focused skin assessment warm and dry. HEAD: Atraumatic. Normocephalic. EYES: Pupils equal and round. No injection or drainage. ENT: Moist mucous membranes NECK: Trachea midline. CARDIOVASCULAR: Regular rate and rhythm. No murmur appreciated. RESPIRATORY: Some grunting and upper airway sounds, Poor air movement with minimal expiratory wheezing, speaking 3-4 word sentences, prolonged expiratory phase GASTROINTESTINAL: Abdomen soft, non-tender, nondistended. MUSCULOSKELETAL: No obvious deformities. NEUROLOGICAL: Awake and alert. No obvious cranial nerve deficits. Moving all extremities. PSYCHIATRIC: Appropriate mood and affect; insight and judgment normal. Data Data Last Documented VS Vital Signs Date Time Temp Pulse Resp B/P Pulse Ox O2 Delivery O2 Flow Rate FiO2 10/24/16 09:45 105 18 140/73 99 Nasal Cannula 2 10/24/16 08:45 97.8 Orders Complete Blood Count With Diff (10/24/16 08:36) Comprehensive Metabolic Panel (10/24/16 08:36) Iv Access Insert/Monitor (10/24/16 08:36) Electrocardiogram (10/24/16 08:36) Ecg Monitoring (10/24/16 08:36) Oximetry (10/24/16 08:36) Oxygen Administration (10/24/16 08:36) Chest, Single Ap (10/24/16 08:36) Sodium Chloride 0.9% Flush (Ns Flush) (10/24/16 08:45) Methylprednisolone So Succ Inj (Solumedr (10/24/16 08:45) Albuterol Neb (Albuterol Neb) (10/24/16 08:45) Electrocardiogram (10/24/16 ) Ct Soft Tiss Neck W Iv Cont (10/24/16 ) Ct Thorax/ Chest W Iv Contrast (10/24/16 ) Iohexol 350 Inj (Omnipaque 350 Inj) (10/24/16 10:36) Labs Laboratory Tests Test 10/24/16 08:55 White Blood Count 9.8 TH/MM3 Red Blood Count 4.34 MIL/MM3 Hemoglobin 12.6 GM/DL Hematocrit 38.1 % Mean Corpuscular Volume 87.9 FL Mean Corpuscular Hemoglobin 29.1 PG Mean Corpuscular Hemoglobin 33.2 % Concent Red Cell Distribution Width 12.9 % Platelet Count 287 TH/MM3 Mean Platelet Volume 7.6 FL Neutrophils (%) (Auto) 76.5 % Lymphocytes (%) (Auto) 15.7 % Monocytes (%) (Auto) 5.9 % Eosinophils (%) (Auto) 0.7 % Basophils (%) (Auto) 1.2 % Neutrophils # (Auto) 7.5 TH/MM3 Lymphocytes # (Auto) 1.5 TH/MM3 Monocytes # (Auto) 0.6 TH/MM3 Eosinophils # (Auto) 0.1 TH/MM3 Basophils # (Auto) 0.1 TH/MM3 CBC Comment DIFF FINAL Differential Comment Sodium Level 143 MEQ/L Potassium Level 3.6 MEQ/L Chloride Level 102 MEQ/L Carbon Dioxide Level 33.4 MEQ/L Anion Gap 8 MEQ/L Blood Urea Nitrogen 11 MG/DL Creatinine 0.69 MG/DL Estimat Glomerular Filtration 88 ML/MIN Rate Random Glucose 97 MG/DL Calcium Level 8.7 MG/DL Total Bilirubin 0.2 MG/DL Aspartate Amino Transf 20 U/L (AST/SGOT) Alanine Aminotransferase 39 U/L (ALT/SGPT) Alkaline Phosphatase 58 U/L Total Protein 7.4 GM/DL Albumin 3.4 GM/DL [facility] Medical Decision Making Medical Screen Exam Complete: Yes Emergency Medical Condition: Yes Interpretation(s) EKG: Normal sinus rhythm, no ST changes No leukocytosis Bicarbonate is 33 Last 24 hours Impressions Chest X-Ray 10/24/16 0836 Signed Impressions: Service Date/Time: September 09:29 - CONCLUSION: 1. Mild cardiomegaly. 2. No acute focal pulmonary infiltrate or pulmonary vascular congestion. Edenilson Penaloza MD Neck CT 10/24/16 0000 Signed Impressions: Service Date/Time: September 10:18 - CONCLUSION: Negative Michael Zuniga MD Chest CT 10/24/16 0000 Signed Impressions: Service Date/Time: September 10:29 - CONCLUSION: No acute cardiopulmonary process Hepatic steatosis Post cholecystectomy. Joe Maciel MD Differential Diagnosis COPD exacerbation, peritonsillar abscess, head and neck cancer, lung cancer Narrative Course This is a 56-year-old female who has a history of advanced COPD who presents to the emergency department with increasing wheezing and shortness of breath. On exam she is very tight and has poor air movement but also has a strange upper airway sound with some grunting. She was given serial DuoNeb's and methylprednisolone and her symptoms improved. She was subjectively reporting some swelling in the area of her right clavicle. Due to this and the upper airway sounds I observed I ordered a CT of the neck and chest which were negative for mass. Patient feels much better on reassessment. I Think she is appropriate for outpatient evaluation with continued prednisone and bronchodilators. 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 Diagnosis Primary Impression: COPD exacerbation Patient Instructions: General Instructions Additional Instructions: If you develop severe shortness of breath, chest pain, or difficulty breathing return to the emergency department. Use albuterol every 4 hours for the next 2 days. Then use as needed for wheezing. Complete your course of steroids. Complete your course of antibiotics. Follow up with your primary care physician in 2-3 days if your symptoms have not improved. Med/Other Pt SpecificInfo: Prescription(s) given Scripts Albuterol 8.5 GM Inh (Proair Hfa 8.5 GM Inh)90 Mcg/Act Aer2 Puff INH Q4-6H PRN ( SHORTNESS OF BREATH) #1 INHALER 108 mcg/actuation Prov:Marlen Don MD 10/24/16 Albuterol Neb 2.5 Mg/3 Ml Neb2.5 Mg NEB Q4HR NEB #60 NEBULE While awake Prov:Marlen Don MD 10/24/16 Azithromycin 250 Mg Tut715 Mg PO DIRECTED #6 TAB Take 2 tabs (500 mg) on day 1 then 1 tab daily x 4 days. Prov:Marlen Don MD 10/24/16 Prednisone 20 Mg Tab40 Mg PO DAILY 4 Days Prov:Marlen Don MD 10/24/16 Disposition: 01 DISCHARGE HOME Condition: Stable Marlen Don MD Oct 24, 2016 08:39
[2016-10-24 08:45] VITALS: BP 209/87; PULSE 100; RESP 18; TEMP 97.8; O2SAT 100
[2016-10-24] MEDS: RESP: ALBUTEROL 2.5 MG/3 ML NEB (SCH) INH (08:45)
[2016-10-24] MEDS ORDERED: methylPREDNISolone SOD SUCC 125 MG/2 ML VIAL IVP ONE (08:45)
[2016-10-24] MEDS ORDERED: SODIUM CHLORIDE 0.9% FLUSH 10 ML FLUSH IVF PRN (08:45)
[2016-10-24 08:49] VITALS: O2SAT 100
[2016-10-24 09:01] LABS: AUTOMATED NEUTROPHIL # 7.5 TH/MM3 (1.8-7.7); BASOPHIL # 0.1 TH/MM3 (0-0.2); BASOPHIL % 1.2 % (0.0-2.0); EOSINOPHIL # 0.1 TH/MM3 (0-0.4); EOSINOPHIL % 0.7 % (0.0-4.0); HEMATOCRIT 38.1 % (35.0-46.0); HEMO FLAGS DIFF FINAL; LYMPH % 15.7 % (9.0-44.0); LYMPHOCYTE # 1.5 TH/MM3 (1.0-4.8); MEAN CELL VOLUME 87.9 FL (80.0-100.0); MEAN CORPUSCULAR HEMOGLOBIN 29.1 PG (27.0-34.0); MEAN CORPUSCULAR HGB CONC 33.2 % (32.0-36.0); MONO % 5.9 % (0.0-8.0); NEUT % 76.5 % (16.0-70.0); PLATELET COUNT 287 TH/MM3 (150-450); RED BLOOD COUNT 4.34 MIL/MM3 (4.00-5.30); RED CELL DISTRIBUTION WIDTH 12.9 % (11.6-17.2); WHITE BLOOD COUNT 9.8 TH/MM3 (4.0-11.0)
[2016-10-24 09:10] LABS: CHLORIDE 102 MEQ/L (98-107); POTASSIUM 3.6 MEQ/L (3.5-5.1); SODIUM (NA) 143 MEQ/L (136-145)
[2016-10-24 09:13] LABS: ANION GAP 8 MEQ/L (5-15); BICARBONATE 33.4 MEQ/L (21.0-32.0)
[2016-10-24 09:14] LABS: BLOOD UREA NITROGEN 11 MG/DL (7-18)
[2016-10-24 09:16] LABS: ALT (GPT) 39 U/L (10-53)
[2016-10-24 09:17] LABS: AST (GOT) 20 U/L (15-37); GLOMERULAR FILTRATION RATE 88 ML/MIN (>89)
[2016-10-24 09:18] LABS: TOTAL BILIRUBIN ADULT 0.2 MG/DL (0.2-1.0)
[2016-10-24 09:19] LABS: ALKALINE PHOSPHATASE 58 U/L (45-117)
[2016-10-24 09:45] VITALS: BP 140/73; PULSE 105; RESP 18; O2SAT 99
--- NOTE | 2016-10-24 10:33 | RADRPT ---
EXAM DATE/TIME: 10/24/2016 09:29 [facility] COMPARISON: CHEST SINGLE AP, September 22, 2016, 16:41. INDICATIONS : Severe shortness of breath. MEDICAL HISTORY : Carcinoma, thyroid. Chronic obstructive pulmonary disease. Emphysema. Hypertension. Hypercholeste rolemia. Asthma. Sleep apena. GERD. Arthritis. Radiation therapy. SURGICAL HISTORY : Tonsillectomy. Cholecystectomy. Tubal ligation. Left knee surgery. Thyroidectomy. ENCOUNTER: Initial ACUITY: 2 days PAIN SCORE: 0/10 LOCATION: Chest FINDINGS: The heart is mildly prominent. The pulmonary vascular pattern is normal. The lungs are clear. CONCLUSION: 1. Mild cardiomegaly. 2. No acute focal pulmonary infiltrate or pulmonary vascular congestion. Edenilson Penaloza MD on October 24, 2016 at 9:59 Board Certified Radiologist. This report was verified electronically.
[2016-10-24] MEDS ORDERED: IOHEXOL 350 MG/ML 10 ML VIAL (for RAD DIAG) IV ONE (10:36)
--- NOTE | 2016-10-24 10:57 | RADRPT ---
EXAM DATE/TIME: 10/24/2016 10:29 [facility] COMPARISON: No previous studies available for comparison. INDICATIONS : Shortness of breath. IV CONTRAST: 100 cc Omnipaque 350 (iohexol) IV ; Cumulative dose for multiple exams. RADIATION DOSE: 22.88 CTDIvol (mGy) MEDICAL HISTORY : Chronic obstructive pulmonary disease. Gastroesophageal reflux disease. Hypertension. SURGICAL HISTORY : Cholecystectomy. Thyroidectomy. ENCOUNTER: Initial ACUITY: 1 day PAIN SCALE: 0/10 LOCATION: Bilateral chest TECHNIQUE: Volumetric scanning of the chest was performed. Using automated exposure control and adjustment of t he mA and/or kV according to patient size, radiation dose was kept as low as reasonably achievable to obtain optimal diagnostic quality images. DICOM format image data is available electronically for review and comparison. FINDINGS: LUNGS: There is no consolidation or pneumothorax. No concerning pulmonary nodule is visualized. PLEURA: There is no pleural thickening or pleural effusion. MEDIASTINUM: The heart and great vessels demonstrate no acute abnormality. There is no mediastinal or hilar lymph adenopathy. AXILLAE: Within normal limits. No lymphadenopathy. SKELETAL: Within normal limits for patient age. MISCELLANEOUS: Liver is diffusely hypodense. Post cholecystectomy clips are noted. CONCLUSION: No acute cardiopulmonary process Hepatic steatosis Post cholecystectomy. Joe Maciel MD on October 24, 2016 at 10:52 Board Certified Radiologist. This report was verified electronically.
--- NOTE | 2016-10-24 11:04 | RADRPT ---
EXAM DATE/TIME: 10/24/2016 10:18 [facility] COMPARISON: No previous studies available for comparison. INDICATIONS : Evaluate for abscess. Shortness of breath. IV CONTRAST: 100 cc Omnipaque 350 (iohexol) IV ; Cumulative dose for multiple exams. RADIATION DOSE: 16.67 CTDIvol (mGy) MEDICAL HISTORY : Gastroesophageal reflux disease. Hypertension. Chronic obstructive pulmonary disease. SURGICAL HISTORY : Thyroidectomy. Cholecystectomy. ENCOUNTER: Initial ACUITY: 1 day PAIN SCALE: 0/10 LOCATION: Right neck TECHNIQUE: Volumetric scanning of the neck was performed. Using automated exposure control and adjustment of th e mA and/or kV according to patient size, radiation dose was kept as low as reasonably achievable to obtain optimal diagnostic quality images. DICOM format image data is available electronically for r eview and comparison. FINDINGS: NASOPHARYNX: The nasopharyngeal airway has a normal configuration. No mucosal thickening or mass is seen. OROPHARYNX: The intrinsic muscles of the tongue are symmetric. The tonsillar pillars are intact. The prevertebr al soft tissues are not thickened. LARYNX: The supraglottic, glottic, and infraglottic structures are intact. PARAPHARYNGEAL: Retropharyngeal left carotid. No evidence of mass. SALIVARY GLANDS: The parotid and submandibular glands are intact. LYMPH NODES: No enlarged or necrotic-appearing nodes. THYROID: Homogeneous enhancement without evidence of nodule. BONES: Unremarkable. CONCLUSION: Negative Michael Zuniga MD on October 24, 2016 at 10:59 Board Certified Radiologist. This report was verified electronically.
[2016-10-24] MEDS ORDERED: ALBUAER3 INH (11:20)
[2016-10-24] MEDS ORDERED: ALBU0.08 NEB (11:20)
[2016-10-24] MEDS ORDERED: AZIT250T3 PO (11:20)
[2016-10-24] MEDS ORDERED: PRED20 PO (11:20)
[2016-10-24 11:35] VITALS: BP 139/63; PULSE 105; RESP 18; O2SAT 98
--- NOTE | 2016-10-24 15:33 | EKG ---
Date Performed: 10/24/2016 Time Performed: 09:32:39 PTAGE: 56 years EKG: Sinus rhythm NONSPECIFIC T-WAVE ABNORMALITY BORDERLINE ECG PREVIOUS TRACING : 09/22/2016 16.08 DOCTOR: Arya Bowen Interpretating Date/Time 10/24/2016 15:32:19
== END 2016-10-24 11:35 | disposition home or self-care (01) ==
LOC: PHED 08:27
DX: J44.1 Chronic obstructive pulmonary disease with (acute) exacerbation (principal); J45.909 Unspecified asthma, uncomplicated; I10 Essential (primary) hypertension; E78.00 Pure hypercholesterolemia, unspecified; K21.9 Gastro-esophageal reflux disease without esophagitis; G47.30 Sleep apnea, unspecified; Z85.850 Personal history of malignant neoplasm of thyroid
CPT/HCPCS: 70491; 71010; 71260; 80053; 85025; 93005; 94640; 94664; 96374; 99285; J2930; J7613; Q9967

== ENCOUNTER 2016-10-30 01:51 | Emergency (ER) | payer MEDICARE, MEDICAID ==
[~2016-10-30 01:51] MED LIST changes: +AZIT250T3 PO
[2016-10-30 02:00] VITALS: BP 166/105; PULSE 90; RESP 22; TEMP 98.2
[2016-10-30] MEDS ORDERED: RANI150T PO (02:02)
[2016-10-30] MEDS ORDERED: SODIUM CHLORIDE 0.9% FLUSH 10 ML FLUSH IVF PRN (02:15)
[2016-10-30] MEDS ORDERED: methylPREDNISolone SOD SUCC 125 MG/2 ML VIAL IVP ONE (02:15)
[2016-10-30] MEDS: RESP: ALBUTEROL 2.5 MG/IPRATROPIUM 0.5 MG NEB (SCH) INH (02:20)
--- NOTE | 2016-10-30 02:22 | PD ---
HPI Chief Complaint: Respiratory Distress Time Seen by Provider: 02:07 Travel History International Travel<30 days: No Contact w/Intl Traveler<30days: No Traveled to known affect area: No History of Present Illness HPI The patient is a 56-year-old female with a history of COPD who complains of persistent shortness of breath. She was seen here on the of last month and given a 4 day prescription for 40 mg prednisone. She took all the prednisone. She was also given a prescription for Zithromax and took that. Nebulizer machine and states she's been taking albuterol nebulizers. She no longer smokes. She denies any fever, chills, productive cough, leg swelling. She gets 2 L nasal cannula oxygen at home. She states she has pain midline in the back of her chest and on both sides at the base. She had a normal chest x- ray done on the of last month. PFSH Past Medical History Hx Anticoagulant Therapy: No Arthritis: Yes (SPINE AND KNEES) Asthma: Yes Blood Disorders: No Anxiety: Yes Depression: Yes Cancer: Yes (THYROID) Cardiovascular Problems: Yes (HTN) High Cholesterol: Yes COPD: Yes Diabetes: No Diminished Hearing: No Endocrine: Yes Gastrointestinal Disorders: Yes GERD: Yes Glaucoma: No Genitourinary: No Headaches: Yes (HEADACHES IN THE AM) Hepatitis: No Hiatal Hernia: No Hypertension: Yes Immune Disorder: No Implanted Vascular Access Dvce: No Musculoskeletal: Yes Neurologic: Yes Psychiatric: Yes Reproductive: No Respiratory: Yes (COPD/EMPHYSEMA) Immunizations Current: Yes Radiation Therapy: Yes Sleep Apnea: Yes (DOES NOT WEAR CPAP) Thyroid Disease: Yes (THYROID CANCER) Tetanus Vaccination: > 5 Years Influenza Vaccination: Yes ?: Not Menopausal: Yes : 8 Para: 5 Miscarriage: 3 : 0 Ectopic : Yes Tubal Ligation: Yes (REVERSED) Past Surgical History Abdominal Surgery: Yes (CHOLECYSTECTOMY) Cardiac Surgery: No Cholecystectomy: Yes (1993) Ear Surgery: No Endocrine Surgery: Yes (THYROIDECTOMY WITH RADIATION) Eye Surgery: No Genitourinary Surgery: No Gynecologic Surgery: No Neurologic Surgery: No Oral Surgery: Yes Pacemaker: No Thoracic Surgery: No Tonsillectomy: Yes (1970--T&A) Other Surgery: Yes (THYROIDECTOMY) Social History Alcohol Use: No Tobacco Use: No Substance Use: No Allergies-Medications (Allergen,Severity, Reaction): Coded Allergies: Sulfa (Verified Allergy, Severe, "HIVES", 10/30/16) Reported Meds & Prescriptions Reported Meds & Active Scripts Active Prednisone 50 Mg Tab 50 Mg PO BID Albuterol Neb (Albuterol Sulfate) 2.5 Mg/3 Ml Neb 2.5 Mg NEB Q4HR NEB While awake Reported Ranitidine (Ranitidine HCl) 150 Mg Tab 150 Mg PO BID Lisinopril 30 Mg Tab 30 Mg PO DAILY Levothyroxine (Levothyroxine Sodium) 175 Mcg Tab 175 Mcg PO DAILY Albuterol Neb (Albuterol Sulfate) 2.5 Mg/3 Ml Neb 2.5 Mg NEB Q4HR NEB PRN Proair Hfa 8.5 GM Inh (Albuterol Sulfate) 90 Mcg/Act Aer 2 Puff INH Q6H PRN 108 mcg/actuation Review of Systems Except as stated in HPI: all other systems reviewed are Neg Physical Exam Narrative GENERAL: The patient is alert, oriented 3 in slight respiratory distress. The respiratory rate is 22 and blood pressure 166/105 but oximetry on 2 L nasal cannula is 97%. The temperature is 98.2 and pulse rate is 90. SKIN: Focused skin assessment warm/dry. HEAD: Atraumatic. Normocephalic. EYES: Pupils equal and round. No scleral icterus. No injection or drainage. ENT: No nasal bleeding or discharge. Mucous membranes pink and moist. NECK: Trachea midline. No JVD. CARDIOVASCULAR: Regular rate and rhythm. No murmur appreciated. RESPIRATORY: No accessory muscle use. Clear to auscultation except for a few widely scattered wheezes on forced expiration.. Breath sounds equal bilaterally. GASTROINTESTINAL: Abdomen soft, non-tender, nondistended. Hepatic and splenic margins not palpable. MUSCULOSKELETAL: No obvious deformities. No clubbing. No cyanosis. No edema. NEUROLOGICAL: Awake and alert. No obvious cranial nerve deficits. Motor grossly within normal limits. Normal speech. PSYCHIATRIC: Appropriate mood and affect; insight and judgment normal. Data Data Last Documented VS Vital Signs Date Time Temp Pulse Resp B/P Pulse Ox O2 Delivery O2 Flow Rate FiO2 10/30/16 02:55 99 18 176/94 Nasal Cannula 2 96 10/30/16 02:17 97 10/30/16 02:00 98.2 Orders Iv Access Insert/Monitor (10/30/16 02:10) Ecg Monitoring (10/30/16 02:10) Oximetry (10/30/16 02:10) Oxygen Administration (10/30/16 02:10) Sodium Chloride 0.9% Flush (Ns Flush) (10/30/16 02:15) Methylprednisolone So Succ Inj (Solumedr (10/30/16 02:15) Albuterol-Ipratropium Neb (Duoneb Neb) (10/30/16 02:15) Ketorolac Inj (Toradol Inj) (10/30/16 03:00) MDM Medical Decision Making Medical Screen Exam Complete: Yes Emergency Medical Condition: Yes Medical Record Reviewed: Yes Differential Diagnosis COPD with acute exacerbation, pleuritic pain, pneumoniaunlikely, bronchitis, pulmonary embolusextremely unlikely Narrative Course The patient's vital signs look excellent on HER-2 liters of oxygen nasal cannula. The chest x-ray taken 4 days ago is normal. The patient does not look in any respiratory distress. The patient is now concerned more about her chest pain. She does want something to cover her pain. The 2 nebs 3 did not seem to change the pain or the feeling of shortness of breath for the patient. The patient has normal respirations with oximetry on HER-2 liters nasal cannula. She has been prescribed an antibioticZithromax. She did run out of her prednisone which only lasted 4 days. I will write her a tapered course of prednisone. I gave her Toradol IV and this resulted in satisfactorily reducing her pain. The patient will be given a prescription for Motrin 600 mg 3 times daily. Impression: COPD with acute exacerbation, pleurisy Diagnosis Primary Impression: COPD exacerbation Additional Impression: Pleurisy Med/Other Pt SpecificInfo: Prescription(s) given Scripts Ibuprofen 600 Mg [id number] Mg PO TID #33 TAB Ref 0 Prov:William Miranda MD 10/30/16 Prednisone 50 Mg Tab50 Mg PO BID #9 TAB Ref 0 Prov:William Miranda MD 10/30/16 William Miranda MD Oct 30, 2016 02:22
[2016-10-30 02:55] VITALS: BP 176/94; PULSE 99; RESP 18
[2016-10-30] MEDS ORDERED: KETOROLAC TROMETHAMINE 60 MG/2 ML (IM) VIAL IVP ONE (03:00)
[2016-10-30] MEDS ORDERED: PRED50 PO (03:06)
[2016-10-30] MEDS ORDERED: IBUP-232 PO (03:12)
[2016-10-30] MEDS ORDERED: ALBU0.08 NEB (03:17)
== END 2016-10-30 03:40 | disposition home or self-care (01) ==
LOC: PHED 01:51
DX: J44.1 Chronic obstructive pulmonary disease with (acute) exacerbation (principal); R09.1 Pleurisy; I10 Essential (primary) hypertension; E78.00 Pure hypercholesterolemia, unspecified; G47.30 Sleep apnea, unspecified; Z99.81 Dependence on supplemental oxygen; Z87.39 Personal history of other diseases of the musculoskeletal system and connective tissue; Z87.09 Personal history of other diseases of the respiratory system; Z86.59 Personal history of other mental and behavioral disorders; Z86.79 Personal history of other diseases of the circulatory system; Z87.19 Personal history of other diseases of the digestive system; Z86.69 Personal history of other diseases of the nervous system and sense organs; Z85.850 Personal history of malignant neoplasm of thyroid
CPT/HCPCS: 94640; 94664; 96374; 96375; 99284; J1885; J2930

== ENCOUNTER 2017-04-28 01:34 | Observation (INO) | payer MEDICARE, MEDICAID ==
[2017-04-28] VITALS (9 sets, daily range): BP systolic 114–129; BP diastolic 54–80; PULSE 108–121; RESP 16–24; TEMP 97.8–98.6; O2SAT 95–100
[~2017-04-28] VITALS: Ht 152.4 cm; Wt 109.1 kg
[2017-04-28] MEDS: RESP: ALBUTEROL 2.5 MG/IPRATROPIUM 0.5 MG NEB (SCH) INH ×3 (01:30→02:10)
[~2017-04-28 01:34] MED LIST changes: -AZIT250T3 PO; +IBUP-232 PO; -PRED20 PO; +PRED50 PO; +RANI150T PO
[2017-04-28] MEDS ORDERED: RESP: ALBUTEROL 2.5 MG/IPRATROPIUM 0.5 MG NEB (SCH) ONE (01:38)
--- NOTE | 2017-04-28 02:17 | PD ---
HPI Chief Complaint: Respiratory Distress Time Seen by Provider: 02:08 Travel History International Travel<30 days: No Contact w/Intl Traveler<30days: No Traveled to known affect area: No History of Present Illness HPI 57-year-old female complains of wheezing and shortness of breath. Patient has history COPD. Patient has inhaler at home. Patient does not have access to a nebulizer recently. Patient started having increasing wheezing and short of breath since this morning. Patient denies any chest pain. Patient denies any fever chills. Patient is a nonsmoker. EMS was called. Patient was given albuterol treatment on the way to ED. Patient also was given Solu-Medrol 125 [address] IV [address] the way TD. Patient's feeling better now. PFSH Past Medical History Hx Anticoagulant Therapy: No Arthritis: Yes (SPINE AND KNEES) Asthma: Yes Blood Disorders: No Anxiety: Yes Depression: Yes Cancer: Yes (THYROID) Cardiovascular Problems: Yes (HTN) High Cholesterol: Yes COPD: Yes Diabetes: No Diminished Hearing: No Endocrine: Yes Gastrointestinal Disorders: Yes GERD: Yes Glaucoma: No Genitourinary: No Headaches: Yes (HEADACHES IN THE AM) Hepatitis: No Hiatal Hernia: No Hypertension: Yes Immune Disorder: No Implanted Vascular Access Dvce: No Musculoskeletal: Yes Neurologic: Yes Psychiatric: Yes Reproductive: No Respiratory: Yes (COPD/EMPHYSEMA) Immunizations Current: Yes Radiation Therapy: Yes Sleep Apnea: Yes (DOES NOT WEAR CPAP) Thyroid Disease: Yes (THYROID CANCER) Menopausal: Yes : 8 Para: 5 Miscarriage: 3 : 0 Ectopic : Yes Tubal Ligation: Yes (REVERSED) Past Surgical History Abdominal Surgery: Yes (CHOLECYSTECTOMY) Cardiac Surgery: No Cholecystectomy: Yes (1993) Ear Surgery: No Endocrine Surgery: Yes (THYROIDECTOMY WITH RADIATION) Eye Surgery: No Genitourinary Surgery: No Gynecologic Surgery: No Neurologic Surgery: No Oral Surgery: Yes Pacemaker: No Prostatectomy: Yes Thoracic Surgery: No Tonsillectomy: Yes (1970--T&) Other Surgery: Yes (THYROIDECTOMY) Social History Alcohol Use: No Tobacco Use: No Substance Use: No Allergies-Medications (Allergen,Severity, Reaction): Coded Allergies: Sulfa (Sulfonamide Antibiotics) (Unverified Allergy, Severe, "HIVES", ) Reported Meds & Prescriptions Reported Meds & Active Scripts Active Albuterol Neb (Albuterol Sulfate) 2.5 Mg/3 Ml Neb 2.5 Mg NEB Q4HR NEB While awake Ibuprofen 600 Mg Tab 600 Mg PO TID Prednisone 50 Mg Tab 50 Mg PO BID Albuterol Neb (Albuterol Sulfate) 2.5 Mg/3 Ml Neb 2.5 Mg NEB Q4HR NEB While awake Reported Ranitidine (Ranitidine HCl) 150 Mg Tab 150 Mg PO BID Lisinopril 30 Mg Tab 30 Mg PO DAILY Levothyroxine (Levothyroxine Sodium) 175 Mcg Tab 175 Mcg PO DAILY Albuterol Neb (Albuterol Sulfate) 2.5 Mg/3 Ml Neb 2.5 Mg NEB Q4HR NEB PRN Proair Hfa 8.5 GM Inh (Albuterol Sulfate) 90 Mcg/Act Aer 2 Puff INH Q6H PRN 108 mcg/actuation Review of Systems General / Constitutional: No: Fever Eyes: No: Visual changes HENT: No: Headaches Cardiovascular: No: Chest Pain or Discomfort Respiratory: Positive: Shortness of Breath, Wheezing Gastrointestinal: No: Abdominal Pain Genitourinary: No: Dysuria Musculoskeletal: No: Pain Skin: No Rash Neurologic: No: Weakness Psychiatric: No: Depression Endocrine: No: Polydipsia Hematologic/Lymphatic: No: Easy Bruising Physical Exam Narrative GENERAL: Well-nourished, well-developed patient. SKIN: Focused skin assessment warm/dry. HEAD: Normocephalic. EYES: No scleral icterus. No injection or drainage. NECK: Supple, trachea midline. No JVD or lymphadenopathy. CARDIOVASCULAR: Regular rate and rhythm without murmurs, gallops, or rubs. RESPIRATORY: Breath sounds equal bilaterally. No accessory muscle use. Patient has mild expiratory wheezes bilaterally. No rhonchi. GASTROINTESTINAL: Abdomen soft, non-tender, nondistended. MUSCULOSKELETAL: No cyanosis, or edema. BACK: Nontender without obvious deformity. No CVA tenderness. Neurologic exam normal. Data Data Last Documented VS Vital Signs Date Time Temp Pulse Resp B/P (MAP) Pulse Ox O2 Delivery O2 Flow Rate FiO2 04/28/17 01:36 98.5 108 24 129/80 (96) 100 04/28/17 01:36 Nasal Cannula 6.00 Orders Orders Albuterol-Ipratropium Neb (Duoneb Neb) (04/28/17 01:38) Albuterol-Ipratropium Neb (Duoneb Neb) (04/28/17 02:45) Electrocardiogram (04/28/17 03:22) Complete Blood Count With Diff (04/28/17 03:22) Comprehensive Metabolic Panel (04/28/17 03:22) Prothrombin Time / Inr (Pt) (04/28/17 03:22) Act Partial Throm Time (Ptt) (04/28/17 03:22) Blood Culture (04/28/17 03:22) Group A Rapid Strep Screen (04/28/17 03:22) Chest, Single Ap (04/28/17 03:22) Iv Access Insert/Monitor (04/28/17 03:22) Ecg Monitoring (04/28/17 03:22) Oximetry (04/28/17 03:22) Admit Order (Ed Use Only) (04/28/17 03:31) MDM Medical Decision Making Medical Screen Exam Complete: Yes Emergency Medical Condition: Yes Differential Diagnosis Differential diagnosis including acute exacerbation COPD, bronchitis, pneumonia. Narrative Course 57-year-old female with wheezing and shortness of breath. History of COPD. Patient was given albuterol nebulizer treatment and Solu-Medrol IV on the way to the ED. Albuterol with Atrovent unit dose treatment 3. Diagnosis Primary Impression: COPD with acute exacerbation Admitting Information Admitting Physician Requests: Sher Schwartz MD Apr 28, 2017 02:17
[2017-04-28] MEDS ORDERED: MAGNESIUM HYDROXIDE SUSP 30 ML CUP PO PRN (03:45)
[2017-04-28] MEDS ORDERED: ACETAMINOPHEN/HYDROcodone 325 MG/5 MG TAB PO PRN (03:45)
[2017-04-28] MEDS ORDERED: LACTULOSE SYRUP 20 GM/30 ML CUP PO PRN (03:45)
[2017-04-28] MEDS ORDERED: RESP: ALBUTEROL 2.5 MG/IPRATROPIUM 0.5 MG NEB (PRN) NEB (03:45)
[2017-04-28] MEDS ORDERED: MORPHINE SULFATE 2 MG/ML INJ IV PUSH PRN (03:45)
[2017-04-28] MEDS ORDERED: SODIUM CHLORIDE 0.9% FLUSH 10 ML FLUSH IV FLUSH PRN (03:45)
[2017-04-28] MEDS ORDERED: ACETAMINOPHEN 325 MG TAB PO PRN (03:45)
[2017-04-28] MEDS ORDERED: SENNOSIDES 8.6 MG TAB PO PRN (03:45)
[2017-04-28] MEDS ORDERED: ONDANSETRON HCL 4 MG/2 ML VIAL IVP PRN (03:45)
[2017-04-28] MEDS ORDERED: BISACODYL 10 MG SUPP RECTAL PRN (03:45)
[2017-04-28 03:54] LABS: AUTOMATED NEUTROPHIL # 9.5 TH/MM3 (1.8-7.7); BASOPHIL % 0.3 % (0.0-2.0); EOSINOPHIL % 0.2 % (0.0-4.0); HEMATOCRIT 39.9 % (35.0-46.0); LYMPH % 11.2 % (9.0-44.0); LYMPHOCYTE # 1.3 TH/MM3 (1.0-4.8); MEAN CELL VOLUME 89.8 FL (80.0-100.0); MEAN CORPUSCULAR HEMOGLOBIN 29.2 PG (27.0-34.0); MEAN CORPUSCULAR HGB CONC 32.5 % (32.0-36.0); MEAN PLATELET VOLUME 7.8 FL (7.0-11.0); MONO % 2.7 % (0.0-8.0); MONOCYTE # 0.3 TH/MM3 (0-0.9); NEUT % 85.6 % (16.0-70.0); PLATELET COUNT 295 TH/MM3 (150-450); RED BLOOD COUNT 4.44 MIL/MM3 (4.00-5.30); RED CELL DISTRIBUTION WIDTH 13.5 % (11.6-17.2); WHITE BLOOD COUNT 11.1 TH/MM3 (4.0-11.0)
[2017-04-28 04:01] LABS: PROTHROMBIN TIME - PATIENT 10.1 SEC (9.8-11.6)
[2017-04-28 04:05] LABS: ALBUMIN 3.7 GM/DL (3.4-5.0); ALT (GPT) 46 U/L (10-53); AST (GOT) 23 U/L (15-37); BICARBONATE 33.5 MEQ/L (21.0-32.0); BLOOD UREA NITROGEN 14 MG/DL (7-18); CALCIUM 8.4 MG/DL (8.5-10.1); CHLORIDE 100 MEQ/L (98-107); CREATININE 0.87 MG/DL (0.50-1.00); GLOMERULAR FILTRATION RATE 67 ML/MIN (>89); GLUCOSE,RANDOM 182 MG/DL (74-106); SODIUM (NA) 140 MEQ/L (136-145)
[2017-04-28 04:07] LABS: ALKALINE PHOSPHATASE 61 U/L (45-117); TOTAL BILIRUBIN ADULT 0.2 MG/DL (0.2-1.0); TOTAL PROTEIN 7.8 GM/DL (6.4-8.2)
--- NOTE | 2017-04-28 04:08 | HHI.HP ---
[facility] DAMARIS Tucker Admission Diagnosis acute exacerbation COPD Diagnoses: (1) COPD (chronic obstructive pulmonary disease) Diagnosis: Principal (2) HTN (hypertension) Diagnosis: Principal Travel History International Travel<30 Days: No Contact w/Intl Traveler <30 Da: No Traveled to Known Affected Are: No History of Present Illness This is a 57-year-old female with a PMH of Anxiety, Depression, Thyroid CA, HTN , Hyperlipidemia, COPD and Sleep Apnea who was brought to the ER by EMS with complaints of SOB and wheezing. States symptoms have been ongoing for approx 1wk, however became severe today, states she "thought I was gonna ". Recently moved to [facility] and states her Nebulizer machine is packed away in storage so hasn't been using it. Reports associated non-productive cough. SOB worse w/ exertion. S/p Solu-Medrol and DuoNeb by EMS w/ some improvement. S/p DuoNeb in ER, however pt w/ persistent SOB. On arrival, BP 129/80, HR 108, O2 sat 96% on 3L NC, Afebrile. Review of Systems Except as stated in HPI: all other systems reviewed are Neg ROS: 14 point review of systems otherwise negative. Past Family Social History Past Medical History PMH: Anxiety, Depression, Thyroid CA, HTN, Hyperlipidemia, COPD and Sleep Apnea Past Surgical History PAST SURGICAL HISTORY: Cholecystectomy, Thyroidectomy Allergies: Coded Allergies: Sulfa (Sulfonamide Antibiotics) (Unverified Allergy, Severe, "HIVES", ) Family History PAST FAMILY HISTORY: Reviewed. No h/o DM or CAD Social History PAST SOCIAL HISTORY: Negative for alcohol, tobacco or drugs. Physical Exam Vital Signs Vital Signs Date Time Temp Pulse Resp B/P (MAP) Pulse Ox O2 Delivery O2 Flow Rate FiO2 04/28/17 01:36 98.5 108 24 129/80 (96) 100 04/28/17 01:36 100 Nasal Cannula 6.00 04/28/17 01:30 96 Nasal Cannula 3.00 Physical Exam PE: GENERAL: Pleasant middle-aged white female in no acute distress. +Dyspnea w/ speech. HEENT: PERRLA, EOMI. No scleral icterus or conjunctival pallor. No lid lag or facial droop. CARDIOVASCULAR: Regular rate and rhythm. No obvious murmurs to auscultation. No chest tenderness to palpation. RESPIRATORY: No obvious rhonchi. Significantly decreased air movement bilaterally, minimal wheezing. GASTROINTESTINAL: Abdomen soft, non-tender, nondistended. BS normal. MUSCULOSKELETAL: Extremities without clubbing, cyanosis, or edema. No obvious deformities. NEUROLOGICAL: Awake, alert and oriented x4. No focal neurologic deficits. Moving both upper and lower extremities spontaneously. Laboratory Laboratory Tests Test 04/28/17 03:35 Date/Time Source Procedure Growth Status 04/28/17 03:35 Blood Peripheral Aerobic Blood Culture Pending Received 04/28/17 03:35 Blood Peripheral Anaerobic Blood Culture Pending Received 04/28/17 03:40 Throat Group A Streptococcus Screen (CHARITY) Pending Received Caprini VTE Risk Assessment Caprini VTE Risk Assessment: No/Low Risk (score <= 1) Caprini Risk Assessment Model Point Value = 1 Point Value = 2 Point Value = 3 Point Value = 5 Age 41-60 Minor surgery BMI > 25 kg/m2 Swollen legs Varicose veins or History of unexplained or recurrent spontaneous Oral contraceptives or hormone replacement Sepsis (< 1 month) Serious lung disease, including pneumonia (< 1 month) Abnormal pulmonary function Acute myocardial infarction Congestive heart failure (< 1 month) History of inflammatory bowel disease Medical patient at bed rest Age 61-74 Arthroscopic surgery Major open surgery (> 45 min) Laparoscopic surgery (> 45 min) Malignancy Confined to bed (> 72 hours) Immobilizing plaster cast Central venous access Age >= 75 History of VTE Family history of VTE Factor V Leiden Prothrombin [id number] Lupus anticoagulant Anticardiolipin antibodies Elevated serum homocysteine Heparin-induced thrombocytopenia Other congenital or acquired thrombophilia Stroke (< 1 month) Elective arthroplasty Hip, pelvis, or leg fracture Acute spinal cord injury (< 1 month) Prophylaxis Regimen Total Risk Factor Score Risk Level Prophylaxis Regimen 0-1 Low Early ambulation 2 Moderate Order ONE of the following: *Sequential Compression Device (SCD) *Heparin 5000 units SQ BID 3-4 Higher Order ONE of the following medications: *Heparin 5000 units SQ TID *Enoxaparin/Lovenox 40 mg SQ daily (WT < 150 kg, CrCl > 30 mL/min) *Enoxaparin/Lovenox 30 mg SQ daily (WT < 150 kg, CrCl > 10-29 mL/min) *Enoxaparin/Lovenox 30 mg SQ BID (WT < 150 kg, CrCl > 30 mL/min) AND/OR *Sequential Compression Device (SCD) 5 or more Highest Order ONE of the following medications: *Heparin 5000 units SQ TID (Preferred with Epidurals) *Enoxaparin/Lovenox 40 mg SQ daily (WT < 150 kg, CrCl > 30 mL/min) *Enoxaparin/Lovenox 30 mg SQ daily (WT < 150 kg, CrCl > 10-29 mL/min) *Enoxaparin/Lovenox 30 mg SQ BID (WT < 150 kg, CrCl > 30 mL/min) AND *Sequential Compression Device (SCD) Assessment and Plan Problem List: (1) COPD (chronic obstructive pulmonary disease) ICD Code: J44.9 - Chronic obstructive pulmonary disease, unspecified (2) HTN (hypertension) ICD Code: I10 - Essential (primary) hypertension Assessment and Plan A/P: 1. COPD: Chronic Respiratory Failure w/ Acute Exacerbation. Severe. O2 sat 96% on 3L NC, significant SOB/wheezing s/p Solu-Medrol and several rounds of DuoNeb w/ minimal improvement, +decreased air movement bilaterally w/ wheezing. Continue Solu-Medrol q6, DuoNeb q4h and q2h prn, Symbicort, Mucinex. Labs/ CXR pending will follow. 2. HTN: BP 130's, resume home Lisinopril, monitor BP. 3. DVT Prophylaxis: Lovenox 4. Social work for d/c planning as needed. 5. Case discussed w/ ER physician at length. Rachael Jung MD Apr 28, 2017 04:08
--- NOTE | 2017-04-28 04:17 | RADRPT ---
EXAM DATE/TIME: 04/28/2017 04:03 [facility] COMPARISON: CHEST SINGLE AP, October 24, 2016, 9:29. INDICATIONS : Shortness of breath. MEDICAL HISTORY : Carcinoma, thyroid. Chronic obstructive pulmonary disease. Emphysema. Hypertension. Hypercholesterole fabio. Asthma. Sleep apena. GERD. Arthritis.Radiation therapy. SURGICAL HISTORY : Tonsillectomy. Cholecystectomy. Tubal ligation. Left knee surgery. Thyroidectomy ENCOUNTER: Initial ACUITY: 3 days PAIN SCORE: 0/10 LOCATION: Bilateral chest FINDINGS: A single view of the chest demonstrates the lungs to be symmetrically aerated without evidence of mas s, infiltrate or effusion. Mild cardiomegaly. Osseous structures are intact. CONCLUSION: No acute disease. Mild cardiomegaly. Serg Gordon Jr., MD on April 28, 2017 at 4:15 Board Certified Radiologist. This report was verified electronically.
[2017-04-28] MEDS: LEVOTHYROXINE SODIUM 75 MCG TAB PO SCH (05:25)
[2017-04-28] MEDS: LEVOTHYROXINE SODIUM 100 MCG TAB PO SCH (05:26)
[2017-04-28] MEDS ORDERED: methylPREDNISolone SOD SUCC 40 MG/1 ML VIAL IV PUSH SCH (06:00)
[2017-04-28] MEDS ORDERED: RESP: ALBUTEROL 2.5 MG/IPRATROPIUM 0.5 MG NEB (SCH) NEB (08:00)
[2017-04-28] MEDS ORDERED: POTASSIUM CHLORIDE 10 MEQ CONTROLLED RELEASE TAB PO ONE (08:30)
[2017-04-28] MEDS: guaiFENesin E.R. 600 MG TAB PO SCH ×2 (08:52→21:00)
[2017-04-28] MEDS: DOCUSATE SODIUM 50 MG/SENNA 8.6 MG TAB PO SCH ×2 (08:52→21:00)
[2017-04-28] MEDS: FAMOTIDINE 20 MG TAB PO SCH ×2 (08:52→21:00)
[2017-04-28] MEDS: LISINOPRIL 10 MG TAB PO SCH (08:53)
[2017-04-28] MEDS: BUDESONIDE-FORMOTEROL 160/4.5 MCG INHALER INH SCH ×2 (08:53→21:01)
[2017-04-28] MEDS: SODIUM CHLORIDE 0.9% FLUSH 10 ML FLUSH IV FLUSH SCH ×2 (08:53→21:01)
[2017-04-28] MEDS: ENOXAPARIN SODIUM 40 MG/0.4 ML SYRINGE SQ SCH (08:55)
--- NOTE | 2017-04-28 09:08 | EKG ---
Date Performed: 04/28/2017 Time Performed: 01:40:08 PTAGE: 57 years EKG: Baseline artifact present SINUS TACHYCARDIA WITH OCCASIONAL SUPRAVENTRICULAR PREMATURE COMP LEXES NONSPECIFIC T-WAVE ABNORMALITY ABNORMAL RHYTHM ECG No significant change from prior electrocard iogram. PREVIOUS TRACING : 10/24/2016 09.32 DOCTOR: Brody Kawn Interpretating Date/Time 04/28/2017 09:07:35
--- NOTE | 2017-04-28 09:37 | HHI.PR ---
Subjective Remarks Follow up on patient with dyspnea. Patient seen and examined. She reports her breathing is a little better today. She denies any new complaints. 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 She uses oxygen at home at night for WENDY. She reports dyspnea with exertion during the day. She does not smoke. She denies any chest pain. She denies any nausea, vomiting or abdominal pain. Objective Vitals Vital Signs Date Time Temp Pulse Resp B/P (MAP) Pulse Ox O2 Delivery O2 Flow Rate FiO2 04/28/17 07:36 96 2.00 04/28/17 07:14 97.8 112 20 120/64 (82) 95 04/28/17 05:07 98.2 115 22 114/54 (74) 97 04/28/17 03:30 97 Nasal Cannula 4.00 04/28/17 01:40 Nasal Cannula 04/28/17 01:36 98.5 108 24 129/80 (96) 100 04/28/17 01:36 100 Nasal Cannula 6.00 04/28/17 01:30 96 Nasal Cannula 3.00 I/O 04/27/17 04/27/17 04/27/17 04/28/17 04/28/17 04/28/17 07:00 15:00 23:00 07:00 15:00 23:00 Intake Total 240 ml Balance 240 ml Intake Oral 240 ml Result Diagram: 04/28/17 0335 04/28/17 0335 Imaging Last Impressions Chest X-Ray 04/28/17 0322 Signed Impressions: Service Date/Time: Friday, April 28, 2017 04:03 - CONCLUSION: No acute disease. Mild cardiomegaly. Serg Gordon Jr., MD Objective Remarks GENERAL: Well-nourished, well-developed obese patient in NAD. Awake and alert. SKIN: Warm and dry. No rash. HEAD: Normocephalic. Atraumatic. EYES: EOMI. No scleral icterus. No injection or drainage. ENT: No nasal bleeding or discharge. Mucous membranes pink and moist. NECK: Supple. Trachea midline. CARDIOVASCULAR: Tachycardiac. S1, S2 noted. No murmur appreciated. RESPIRATORY: Nonlabored. Fair air entry bilaterally. No wheezing appreciated. Breath sounds equal bilaterally. GASTROINTESTINAL: Abdomen soft, non-tender, nondistended. Normoactive bowel sounds x4. MUSCULOSKELETAL: No obvious deformities. Extremities without clubbing or cyanosis. Mild BLE nonpitting edema. NEUROLOGICAL: Awake and alert. No obvious cranial nerve deficits. Motor grossly within normal limits. 5/5 muscle strength in bilateral upper and lower extremities. Normal speech. PSYCHIATRIC: Appropriate mood and affect; insight and judgment normal. Medications and IVs Current Medications Medications (Trade) Dose Ordered Sig/[place] Route Start Time Stop Time Status Last Admin (SoluMEDROL INJ) 40 mg Q6HR IV PUSH 04/28/17 06:00 04/28/17 05:27 (Symbicort 160-4.5 Mcg Inh) 2 puff Q12HR INH 04/28/17 09:00 04/28/17 08:53 (Mucinex Er) 600 mg BID PO 04/28/17 09:00 04/28/17 08:52 (NS Flush) 2 ml UNSCH PRN IV FLUSH 04/28/17 03:45 (NS Flush) 2 ml BID IV FLUSH 04/28/17 09:00 04/28/17 08:53 (Zofran Inj) 4 mg Q6H PRN IVP 04/28/17 03:45 (Lovenox Inj) 40 mg Q24H SQ 04/28/17 09:00 04/28/17 08:55 (Tylenol) 650 mg Q6H PRN PO 04/28/17 03:45 ([place] 5-325 Mg) 1 tab Q4H PRN PO 04/28/17 03:45 (Morphine Inj) 2 mg Q3H PRN IV PUSH 04/28/17 03:45 (Keily-Colace) 1 tab BID PO 04/28/17 09:00 04/28/17 08:52 (Milk Of Magnesia Liq) 30 ml Q12H PRN PO 04/28/17 03:45 (Senokot) 17.2 mg Q12H PRN PO 04/28/17 03:45 (Dulcolax Supp) 10 mg DAILY PRN RECTAL 04/28/17 03:45 (Lactulose Liq) 30 ml DAILY PRN PO 04/28/17 03:45 (Synthroid) 100 mcg DAILY@0600 PO 04/28/17 06:00 04/28/17 05:26 (Prinivil) 30 mg DAILY PO 04/28/17 09:00 04/28/17 08:53 (Pepcid) 20 mg BID PO 04/28/17 09:00 04/28/17 08:52 (Synthroid) 75 mcg DAILY@0600 PO 04/28/17 06:00 04/28/17 05:25 (Duoneb Neb) 1 ampule Q4HR WHILE AWAKE NEB NEB 04/28/17 08:00 04/28/17 07:31 (Duoneb Neb) 1 ampule Q2HR NEB PRN NEB 04/28/17 03:45 A/P Problem List: (1) COPD (chronic obstructive pulmonary disease) ICD Code: J44.9 - Chronic obstructive pulmonary disease, unspecified (2) HTN (hypertension) ICD Code: I10 - Essential (primary) hypertension Assessment and Plan 1. COPD: Chronic Respiratory Failure w/ Acute Exacerbation. Improving. Currently on O2 sat 96% on 2L NC, no wheezing noted on exam. D/C IV Solu- Medrol and change to po prednisone. Continue with scheduled Duonebs, Symbicort and Mucinex. CXR shows mild cardiomegaly, no acute disease, images reviewed by me. 2. CHF, diastolic, chronic. Patient complains of dyspnea with exertion: Echo 2008 with preserved EF and diastolic dysfunction. Obtain BNP and new echocardiogram study. 3. WENDY: patient follows with Dr. Hinton as outpatient. Reports using oxygen at night only. Does not have a portable unit. Reports dyspnea with exertion. Perform home oxygen walk test. 4. 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 On thyroid replacement, continue. Obtain TSH level. Plan to followup with highway maintenance supervisor as outpatient. 5. HTN: BP 130's, resume home Lisinopril, monitor BP. 6. Hypokalemia: PO repletion ordered. Obtain mag level. Repeat lab studies in am to monitor response. 7. Hyperglycemia: suspect secondary to steroid use. Obtain HgbA1c. Accuchecks and ISS for now. 8. DVT Prophylaxis: Lovenox Discussed with patient, nursing staff and Dr. Florentino Discharge Planning Clinical improvement, likely discharge tomorrow Arelis Fong Apr 28, 2017 09:37
[2017-04-28] MEDS ORDERED: GLUCAGON 1 MG/ML VIAL OTHER PRN (10:00)
[2017-04-28] MEDS ORDERED: DEXTROSE 50% IN WATER 50 ML VIAL(D50) IV PUSH PRN (10:00)
[2017-04-28 10:24] LABS: MAGNESIUM 1.9 MG/DL (1.5-2.5)
[2017-04-28] MEDS: INSULIN ASPART SUPPLEMENTAL SCALE SQ SCH ×3 (12:00→21:00)
[2017-04-28 12:45] LABS: HEMOGLOBIN A1C 5.9 % (4.3-6.0)
[2017-04-28] MEDS: RESP: ALBUTEROL 2.5 MG/IPRATROPIUM 0.5 MG NEB (SCH) NEB ×2 (13:49→20:24)
[2017-04-29] VITALS (8 sets, daily range): BP systolic 118–138; BP diastolic 61–76; PULSE 84–100; RESP 18–24; TEMP 98.3–98.6; O2SAT 96–100
[2017-04-29] MEDS: LEVOTHYROXINE SODIUM 100 MCG TAB PO SCH (06:08)
[2017-04-29] MEDS: LEVOTHYROXINE SODIUM 75 MCG TAB PO SCH (06:08)
[2017-04-29] MEDS: RESP: ALBUTEROL 2.5 MG/IPRATROPIUM 0.5 MG NEB (SCH) NEB ×2 (07:31→12:43)
[2017-04-29 08:27] LABS: BASOPHIL % 0.2 % (0.0-2.0); EOSINOPHIL % 0.1 % (0.0-4.0); HEMATOCRIT 39.3 % (35.0-46.0); HEMOGLOBIN 12.8 GM/DL (11.6-15.3); LYMPH % 15.6 % (9.0-44.0); LYMPHOCYTE # 2.2 TH/MM3 (1.0-4.8); MEAN CELL VOLUME 90.7 FL (80.0-100.0); MEAN CORPUSCULAR HEMOGLOBIN 29.5 PG (27.0-34.0); MEAN CORPUSCULAR HGB CONC 32.5 % (32.0-36.0); MEAN PLATELET VOLUME 7.6 FL (7.0-11.0); MONO % 6.1 % (0.0-8.0); MONOCYTE # 0.9 TH/MM3 (0-0.9); PLATELET COUNT 295 TH/MM3 (150-450); RED BLOOD COUNT 4.34 MIL/MM3 (4.00-5.30); RED CELL DISTRIBUTION WIDTH 13.6 % (11.6-17.2); WHITE BLOOD COUNT 14.1 TH/MM3 (4.0-11.0)
[2017-04-29 08:56] LABS: ALBUMIN 3.2 GM/DL (3.4-5.0); ALKALINE PHOSPHATASE 50 U/L (45-117); ALT (GPT) 36 U/L (10-53); AST (GOT) 14 U/L (15-37); BICARBONATE 31.8 MEQ/L (21.0-32.0); BLOOD UREA NITROGEN 19 MG/DL (7-18); CALCIUM 8.6 MG/DL (8.5-10.1); CHLORIDE 101 MEQ/L (98-107); CREATININE 0.72 MG/DL (0.50-1.00); GLOMERULAR FILTRATION RATE 83 ML/MIN (>89); GLUCOSE,RANDOM 99 MG/DL (74-106); SODIUM (NA) 138 MEQ/L (136-145); TOTAL BILIRUBIN ADULT 0.2 MG/DL (0.2-1.0)
[2017-04-29] MEDS: DOCUSATE SODIUM 50 MG/SENNA 8.6 MG TAB PO SCH (09:00)
[2017-04-29] MEDS ORDERED: predniSONE 20 MG TAB PO SCH (09:00)
[2017-04-29] MEDS: ENOXAPARIN SODIUM 40 MG/0.4 ML SYRINGE SQ SCH (09:36)
[2017-04-29] MEDS: guaiFENesin E.R. 600 MG TAB PO SCH (09:36)
[2017-04-29] MEDS: FAMOTIDINE 20 MG TAB PO SCH (09:36)
--- NOTE | 2017-04-29 09:36 | HHI.PR ---
Subjective Remarks Follow up on patient with dyspnea. Patient seen and examined. Patient reports recurrent episodes of her lungs "seizing up" and she is unable to take a breath. She no longer has oxygen at home having sent the machine back when she moved in with her mother in January. Her nebulizer machine is more than 5 years old and is somewhere in storage. She has used Advair in the past without any improvement. She denies any new medical complaints. She is asking when she will be moved upstairs because she wants to take a shower. Objective Vitals Vital Signs Date Time Temp Pulse Resp B/P (MAP) Pulse Ox O2 Delivery O2 Flow Rate FiO2 04/29/17 08:29 98.3 100 22 138/73 (94) 100 04/29/17 07:31 98 Nasal Cannula 3.00 04/29/17 04:34 98.4 100 18 138/76 (96) 98 04/29/17 00:59 Nasal Cannula 3.00 04/28/17 20:30 98.6 117 18 129/79 (96) 97 04/28/17 15:27 98.4 119 16 117/58 (77) 98 04/28/17 11:28 98.0 121 16 129/65 (86) 97 I/O 04/28/17 04/28/17 04/28/17 04/29/17 04/29/17 04/29/17 07:00 15:00 23:00 07:00 15:00 23:00 Intake Total 240 ml 750 ml 480 ml Output Total 800 ml Balance 240 ml -50 ml 480 ml Intake Oral 240 ml 750 ml 480 ml Output Urine Total 800 ml # Voids 2 Result Diagram: 04/29/17 0756 04/29/17 0756 Imaging Last Impressions Chest X-Ray 04/28/17 0322 Signed Impressions: Service Date/Time: Friday, April 28, 2017 04:03 - CONCLUSION: No acute disease. Mild cardiomegaly. Serg Gordon Jr., MD Objective Remarks GENERAL: Well-nourished, well-developed obese patient in NAD. Awake and alert. No dyspnea noted with conversation. SKIN: Warm and dry. No rash. HEAD: Normocephalic. Atraumatic. EYES: EOMI. No scleral icterus. No injection or drainage. ENT: No nasal bleeding or discharge. Mucous membranes pink and moist. NECK: Supple. Trachea midline. CARDIOVASCULAR: Tachycardiac. S1, S2 noted. No murmur appreciated. RESPIRATORY: Nonlabored. Fair air entry bilaterally. No wheezing appreciated. Breath sounds equal bilaterally. GASTROINTESTINAL: Abdomen soft, non-tender, nondistended. Normoactive bowel sounds x4. MUSCULOSKELETAL: No obvious deformities. Extremities without clubbing or cyanosis. Mild BLE nonpitting edema. NEUROLOGICAL: Awake and alert. No obvious cranial nerve deficits. Motor grossly within normal limits. 5/5 muscle strength in bilateral upper and lower extremities. Normal speech. PSYCHIATRIC: Appropriate mood and affect; insight and judgment normal. Procedures None Medications and IVs Current Medications Medications (Trade) Dose Ordered Sig/[place] Route Start Time Stop Time Status Last Admin (Symbicort 160-4.5 Mcg Inh) 2 puff Q12HR INH 04/28/17 09:00 04/28/17 21:01 (Mucinex Er) 600 mg BID PO 04/28/17 09:00 04/28/17 21:00 (NS Flush) 2 ml UNSCH PRN IV FLUSH 04/28/17 03:45 (NS Flush) 2 ml BID IV FLUSH 04/28/17 09:00 04/28/17 21:01 (Zofran Inj) 4 mg Q6H PRN IVP 04/28/17 03:45 (Lovenox Inj) 40 mg Q24H SQ 04/28/17 09:00 04/28/17 08:55 (Tylenol) 650 mg Q6H PRN PO 04/28/17 03:45 ([employer] 5-325 Mg) 1 tab Q4H PRN PO 04/28/17 03:45 (Morphine Inj) 2 mg Q3H PRN IV PUSH 04/28/17 03:45 (Keily-Colace) 1 tab BID PO 04/28/17 09:00 04/28/17 08:52 (Milk Of Magnesia Liq) 30 ml Q12H PRN PO 04/28/17 03:45 (Senokot) 17.2 mg Q12H PRN PO 04/28/17 03:45 (Dulcolax Supp) 10 mg DAILY PRN RECTAL 04/28/17 03:45 (Lactulose Liq) 30 ml DAILY PRN PO 04/28/17 03:45 (Synthroid) 100 mcg DAILY@0600 PO 04/28/17 06:00 04/29/17 06:08 (Prinivil) 30 mg DAILY PO 04/28/17 09:00 04/28/17 08:53 (Pepcid) 20 mg BID PO 04/28/17 09:00 04/28/17 21:00 (Synthroid) 75 mcg DAILY@0600 PO 04/28/17 06:00 04/29/17 06:08 (Duoneb Neb) 1 ampule Q2HR NEB PRN NEB 04/28/17 03:45 (Deltasone) 40 mg DAILY PO 04/29/17 09:00 (D50w (Vial) Inj) 50 ml UNSCH PRN IV PUSH 04/28/17 10:00 (Glucagon Inj) 1 mg UNSCH PRN OTHER 04/28/17 10:00 (NovoLOG SUPPLEMENTAL SCALE) 1 ACHS SLIDING SCALE SQ 04/28/17 12:00 (Duoneb Neb) 1 ampule Q6HR WHILE AWAKE NEB NEB 04/28/17 14:00 04/29/17 07:31 A/P Problem List: (1) COPD (chronic obstructive pulmonary disease) ICD Code: J44.9 - Chronic obstructive pulmonary disease, unspecified (2) HTN (hypertension) ICD Code: I10 - Essential (primary) hypertension Assessment and Plan 1. COPD: Chronic Respiratory Failure w/ Acute Exacerbation. Currently on O2 sat 100% on 3L NC, no wheezing noted on exam. Continue on oral prednisone. Continue with scheduled Duonebs, Symbicort and Mucinex. CXR shows mild cardiomegaly, no acute disease, images reviewed by me. Wean down off of oxygen as tolerated to maintain O2 sats above 92%. Patient satting 94% on room air. Patient reports recurrent episodes of inability to take a breath ?anxiety. 2. CHF, diastolic, chronic, not in acute exacerbation. Patient complains of dyspnea with exertion: Echo 2008 with preserved EF and diastolic dysfunction. BNP 3. Echo completed revealing EF 60-65%. 3. WENDY: patient follows with Dr. Hinton as outpatient. Reports using oxygen at night only 3-4 nights/week prior to returning the machine in January when she moved. Reports dyspnea with exertion. Patient failed home oxygen walk test desatting to 86% with exertion. CM consulted to assist with home oxygen. 4. 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 On thyroid replacement, continue. TSH level 13.3, Free T4 1.13, Total T3 68. Plan to followup with film developer as outpatient. 5. HTN: Controlled. Continue on home Lisinopril, monitor BP. 6. Hypokalemia: Improved s/p po repletion. Monitor as indicated 7. Hyperglycemia: suspect secondary to steroid use. HgbA1c 5.9. Accuchecks and ISS for now. 8. DVT Prophylaxis: Lovenox Discussed with patient, nursing staff and Dr. Florentino 1333: Oxygen delivered for home use 1439: Echocardiogram completed Discharge patient to home Condition on discharge: Improved Heart healthy Diet as tolerated Ad Callie activity Rx written: Prednisone, Mucinex, albuterol, Symbicort Follow-up with primary care physician, garbage pick up man Dr. Hinton and combine mechanic Dr. Waters to discuss the echocardiogram results Arelis Fong Apr 29, 2017 09:36
[2017-04-29] MEDS: LISINOPRIL 10 MG TAB PO SCH (09:37)
[2017-04-29] MEDS ORDERED: NEBULIZER1 MI1 (09:39)
[2017-04-29] MEDS ORDERED: OXYGENDME NAS.CANULA (09:43)
[2017-04-29] MEDS: SODIUM CHLORIDE 0.9% FLUSH 10 ML FLUSH IV FLUSH SCH (09:43)
[2017-04-29] MEDS: BUDESONIDE-FORMOTEROL 160/4.5 MCG INHALER INH SCH (09:49)
[2017-04-29] MEDS: INSULIN ASPART SUPPLEMENTAL SCALE SQ SCH ×2 (09:50→12:46)
[2017-04-29] MEDS ORDERED: PRED10 PO (13:28)
[2017-04-29] MEDS ORDERED: ALBUAER3 INH (13:28)
[2017-04-29] MEDS ORDERED: guaiFENesin ER PO (13:28)
[2017-04-29] MEDS ORDERED: Budeson-Formot 160-4.5 Mcg Inh INH (13:28)
[2017-04-29] MEDS ORDERED: ALBU0.08 NEB (13:28)
--- NOTE | 2017-04-29 13:30 | HHI.DCPOC ---
Discharge Care Plan Diagnosis: (1) COPD with acute exacerbation (2) Hypokalemia (3) HTN (hypertension) (4) Diastolic heart failure Goals to Promote Your Health * To prevent worsening of your condition and complications * To maintain your health at the optimal level Directions to Meet Your Goals Please follow-up with your inspector subassemblies Dr. Waters as outpatient to review the results of your echocardiogram testing Take your medications as prescribed Follow your dietary instruction Follow activity as directed Keep your appointments as scheduled Take your immunizations and boosters as scheduled If your symptoms worsen call your PCP, if no PCP go to Urgent Care Center or Emergency Room Smoking is Dangerous to Your Health. Avoid second hand smoke Call the 24-hour hour crisis hotline for domestic abuse at Arelis Fong Apr 29, 2017 13:30
--- NOTE | 2017-04-29 15:28 | ECHRPT ---
Indication: Heart failure CONCLUSIONS Normal left ventricular size and wall thickness. The left ventricular systolic function is normal wi th an estimated ejection fraction in the range of 60-65%. Wall motion abnormalities cannot be completely excluded on the basis of this study. Structurally normal mitral valve. Trace mitral regurgitation. BP: 138 / 76 HR: 100 Rhythm: Sinus MEASUREMENTS (Male / Female) Normal Values Technical Quality:Technically difficult study 2D ECHO LV Diastolic Diameter PLAX 3.5 cm 4.2 - 5.9 / 3.9 - 5.3 cm LV Systolic Diameter PLAX 2.7 cm IVS Diastolic Thickness 1.5 cm 0.6 - 1.0 / 0.6 - 0.9 cm LVPW Diastolic Thickness 1.5 cm 0.6 - 1.0 / 0.6 - 0.9 cm LV Relative Wall Thickness 0.9 RV Internal Dim ED PLAX 2.6 cm LVOT Diameter 1.9 cm M-MODE Aortic Root Diameter MM 3.4 cm AV Cusp Separation MM 1.5 cm DOPPLER AV Peak Velocity 114.0 cm/s AV Peak Gradient 5.2 mmHg LVOT Peak Velocity 101.0 cm/s LVOT Peak Gradient 4.1 mmHg AV Area Cont Eq pk 2.5 cm MV Area PHT 3.9 cm Mitral E Point Velocity 78.0 cm/s Mitral A Point Velocity 99.2 cm/s Mitral E to A Ratio 0.8 PV Peak Velocity 157.0 cm/s PV Peak Gradient 9.9 mmHg FINDINGS LEFT VENTRICLE Normal left ventricular size and wall thickness. The left ventricular systolic function is normal wi th an estimated ejection fraction in the range of 60-65%. Wall motion abnormalities cannot be completely excluded on the basis of this study. RIGHT VENTRICLE Normal right ventricular size and systolic function. LEFT ATRIUM The left atrial size is normal. RIGHT ATRIUM The right atrial size is normal. ATRIAL SEPTUM Normal atrial septal thickness without atrial level shunting by limited color doppler interrogation. AORTA The aortic root and proximal ascending aorta are normal in size on limited imaging. MITRAL VALVE Structurally normal mitral valve. Trace mitral regurgitation. AORTIC VALVE Trileaflet aortic valve. No aortic valve stenosis or regurgitation. TRICUSPID VALVE Structurally normal tricuspid valve. No tricuspid valve stenosis or regurgitation. PULMONARY VALVE The pulmonary valve is not well visualized. VESSELS The inferior vena cava is normal in size. PERICARDIUM No pericardial effusion. Lucas Lopez MD (Electronically Signed) Final Date:29 April 2017 15:26
== END 2017-04-29 16:22 | disposition home or self-care (01) ==
LOC: NEPE 01:34 → NEDA 03:33 → INTOOBSV 03:33 → UNDOADMOB 03:33 → NEPGCP 04:48 → NEDA 04-29 01:18
PROVIDERS: ADMIT Internal Medicine; ATTEND Internal Medicine
DX: J44.1 Chronic obstructive pulmonary disease with (acute) exacerbation (principal); J96.20 Acute and chronic respiratory failure, unspecified whether with hypoxia or hypercapnia; I11.0 Hypertensive heart disease with heart failure; I50.32 Chronic diastolic (congestive) heart failure; G47.33 Obstructive sleep apnea (adult) (pediatric); E87.6 Hypokalemia; R73.9 Hyperglycemia, unspecified; E78.00 Pure hypercholesterolemia, unspecified; K21.9 Gastro-esophageal reflux disease without esophagitis; F41.9 Anxiety disorder, unspecified; Z99.81 Dependence on supplemental oxygen; Z85.850 Personal history of malignant neoplasm of thyroid; Z92.3 Personal history of irradiation
CPT/HCPCS: 71045; 80053; 82948; 83036; 83735; 83880; 84439; 84443; 84480; 85025; 85610; 85730; 87040; 87081; 87880; 93005; 93306; 94618; 94640; 94664; 96372; 96374; 99285; G0378; J1650; J2920; J7512